=== PATIENT | female | born 1935 | race Caucasian/White ===

== ENCOUNTER 2017-07-01 09:47 | Outpatient (CLI) | payer MEDICARE, OTHER ==
--- NOTE | 2017-07-01 10:41 | MRI ---
MRI LUMBAR SPINE WITHOUT CONTRAST: History: Lumbosacral radiculopathy, left sided. Pain radiates down the left leg, x 3 weeks. Comparison: None. Technique: Lumbar spine MRI was performed without intravenous gadolinium administration. Multisequent ial, multiplanar imaging was performed. FINDINGS: Appropriate T1 marrow signal intensity of the lumbar vertebrae. Vertebral body height is maintained. No fracture. No significant STIR hyperintensity to suggest vertebral body edema or ligamentous injury . Symmetric signal intensity of the psoas muscles. Appropriate signal intensity of the visualized vika id organs. Conus medullaris terminates at the mid L1 level. T12-L1: No significant central canal stenosis or foraminal narrowing. L1-2: Mild loss of disc space height. No significant posterior disc abnormality. No significant centr al canal stenosis. Mild right foraminal narrowing. Mild left foraminal narrowing. L2-3: Desiccation with mild loss of disc space height. Generalized disc bulge, ligamentum flavum thic kening results in mild central canal stenosis. Mild bilateral foraminal narrowing. L3-4: Desiccation with mild loss of disc space height. Generalized disc bulge, ligamentum flavum thic kening results in mild central canal stenosis. There is narrowing of both subarticular zones with par tial obscuration of bilateral traversing L4 nerve roots. Mild right and moderate left foraminal narro wing. L4-5: Mild loss of disc space height. Generalized disc bulge, ligamentum flavum thickening results in mild central canal stenosis. Mild narrowing of both subarticular zones with partial obscuring of praneeth ateral traversing L5 nerve roots. Mild right foraminal narrowing. Severe left foraminal narrowing due to disc material and to a lesser extent posterior element hypertrophy. L5-S1: Desiccation with mild loss of disc space height. Generalized disc bulge results in mild centra l canal stenosis. Narrowing of both subarticular zones with partial obscuration of bilateral traversi ng S1 nerve roots. Mild to moderate right and mild left foraminal narrowing. IMPRESSION: 1. Degenerative changes of the lumbar spine as above. 2. There are varying degrees of central canal stenosis as detailed above. There is mass effect with p artial obscuration of bilateral traversing L4 nerve roots, bilaterally L5 nerve roots and bilateral S 1 nerve roots. Partial obscuration is due to narrowing of the respective subarticular zones. 3. Severe left foraminal narrowing at L4-5 predominately due to disc material. POS: OFF
== END 2017-07-01 09:48 | disposition home or self-care (01) ==
LOC: TBSIIMAG 09:47
PROVIDERS: ATTEND Family Medicine
DX: M47.26 Other spondylosis with radiculopathy, lumbar region (principal); M51.17 Intervertebral disc disorders with radiculopathy, lumbosacral region; M48.061 Spinal stenosis, lumbar region without neurogenic claudication; M48.07 Spinal stenosis, lumbosacral region; M99.83 Other biomechanical lesions of lumbar region
CPT/HCPCS: 72148

== ENCOUNTER 2017-09-07 09:29 | Outpatient (CLI) | payer MEDICARE, OTHER ==
[2017-09-07 11:09] LABS: Hemoglobin 13.1 g/dL (12.0-16.0); Mean Corpuscular HGB CONC 34.4 g/dL (32.0-36.0); Mean Corpuscular Hemoglobin 30.9 pg (27.0-31.0); Mean Corpuscular Volume 89.6 fL (78.0-98.0); Mean Platelet Volume 7.7 fL (7.4-10.4); Platelet Count 225 thou/uL (130-400); RBC Distribution Width 12.4 % (11.5-14.5); Red Blood Cell (RBC) Count 4.24 mill/uL (4.20-5.40); White Blood Cell (WBC) Count 8.8 thou/uL (4.8-10.8)
[2017-09-07 11:18] LABS: PTT 34.8 SEC (22.9-36.1); Prothrombin Time 13.6 SEC (12.0-14.7)
[2017-09-07 11:37] LABS: ALT (SGPT) 18 U/L (8-55); AST (SGOT) 22 U/L (5-34); Albumin 4.4 g/dL (3.4-4.8); Alkaline Phosphatase 79 U/L (40-150); Anion Gap 13 mmol/L (10-20); BUN (Urea Nitrogen) 22 mg/dL (9.8-20.1); Bilirubin, Total 0.8 mg/dL (0.2-1.2); Calc. Creatinine Clearance 0 mL/min (70-130); Calcium 9.4 mg/dL (7.8-10.44); Carbon Dioxide 26 mmol/L (23-31); Chloride 101 mmol/L (98-107); Estimated GFR-MDRD 54; Globulin 2.7 g/dL (2.4-3.5); Glucose 114 mg/dL (83-110); Potassium 4.6 mmol/L (3.5-5.1); Protein, Total 7.1 g/dL (6.0-8.3); Sodium 135 mmol/L (136-145)
== END 2017-09-07 09:30 | disposition home or self-care (01) ==
LOC: LABBT 09:29
PROVIDERS: ATTEND Internal Medicine Cardiovascular Disease
DX: Z01.818 Encounter for other preprocedural examination (principal); R07.9 Chest pain, unspecified
CPT/HCPCS: 80053; 85027; 85610; 85730; 93005; 93010

== ENCOUNTER 2017-09-12 05:50 | Day surgery (SDC) | payer MEDICARE, OTHER ==
[2017-09-07 10:05] VITALS: BMI 31.6
[2017-09-12] MEDS ORDERED: Sodium Chloride 0.9% 1,000 ML IV SCH (06:00)
[2017-09-12] MEDS ORDERED: Lidocaine 1% (PF) 30 ML VIAL ONE (06:33)
[2017-09-12] MEDS ORDERED: Nitroglycerin 100MG/250ML BOT 250 ML ONE ×2 (06:41→08:53)
[2017-09-12] MEDS ORDERED: Heparin 10,000 UNITS/1 ML VIAL ONE (06:41)
[2017-09-12] MEDS ORDERED: Verapamil 5 MG/2 ML VIAL ONE (06:41)
[2017-09-12] MEDS ORDERED: Diazepam 5 MG TAB ONE (06:48)
[2017-09-12] MEDS ORDERED: Diazepam 5 MG TAB PO SCH (07:00)
[2017-09-12 07:26] LABS: Cardiac Risk 2.1 (Less than 4.5)
[2017-09-12] MEDS ORDERED: Iopamidol 370 76% 100 ML VIAL ONE (13:32)
== END 2017-09-12 11:47 | disposition home or self-care (01) ==
LOC: CCL 05:50
PROVIDERS: ATTEND Internal Medicine Cardiovascular Disease
PROC: 4A023N7 Measurement of Cardiac Sampling and Pressure, Left Heart, Percutaneous Approach (ICD-10-PCS; principal; 2017-09-12)
PROC: B2111ZZ Fluoroscopy of Multiple Coronary Arteries using Low Osmolar Contrast (ICD-10-PCS; 2017-09-12)
DX: I25.10 Atherosclerotic heart disease of native coronary artery without angina pectoris (principal); I10 Essential (primary) hypertension; E78.5 Hyperlipidemia, unspecified; E11.9 Type 2 diabetes mellitus without complications; E78.00 Pure hypercholesterolemia, unspecified; Z79.84 Long term (current) use of oral hypoglycemic drugs; Z79.82 Long term (current) use of aspirin; Z79.899 Other long term (current) drug therapy
CPT/HCPCS: 80061; 93458; C1769 ×2; 36415; J1644; J2001

== ENCOUNTER 2018-05-10 18:33 | Inpatient (IN) | payer MEDICARE, OTHER ==
[~2018-05-10 18:33] MED LIST: ISOVUE-370 76%-LOCM 1 ML ONE
[2018-05-10 19:54] LABS: #Basophils 0.1 thou/uL (0.0-0.2); #Eosinphils 0.2 thou/uL (0.0-0.7); #Lymphocytes 1.6 thou/uL (1.20-3.40); #Neutrophils 7.1 thou/uL (1.40-6.50); %Basophils 0.7 % (0.0-1.0); %Eosinophils 2.1 % (0.0-10.0); %Lymphocytes 16.3 % (21.0-51.0); %Monocytes 10.1 % (0.0-10.0); %Neutrophils 70.9 % (42.0-75.0); Mean Corpuscular HGB CONC 33.2 g/dL (32.0-36.0); Mean Corpuscular Hemoglobin 30.1 pg (27.0-31.0); Mean Corpuscular Volume 90.5 fL (78.0-98.0); Mean Platelet Volume 7.6 fL (7.4-10.4); Platelet Count 369 thou/uL (130-400); RBC Distribution Width 12.5 % (11.5-14.5); Red Blood Cell (RBC) Count 3.98 mill/uL (4.20-5.40)
--- NOTE | 2018-05-10 20:03 | RAD ---
CHEST ONE VIEW 05/10/18 INDICATION: High blood pressure and dyspnea. COMPARISON: Prior exam dated 02/27/03. FINDINGS: There is cardiomegaly and mild pulmonary vascular congestion. Small bilateral pleural effusions. No a cute osseous abnormality is evident. IMPRESSION: Findings suspicious for mild CHF. POS: [facility]
[2018-05-10 20:16] LABS: ALT (SGPT) 59 U/L (8-55); AST (SGOT) 51 U/L (5-34); Albumin 3.6 g/dL (3.4-4.8); Alkaline Phosphatase 74 U/L (40-150); Anion Gap 16 mmol/L (10-20); BUN (Urea Nitrogen) 24 mg/dL (9.8-20.1); Bilirubin, Total 0.7 mg/dL (0.2-1.2); Calc. Creatinine Clearance 0 mL/min (70-130); Carbon Dioxide 25 mmol/L (23-31); Chloride 90 mmol/L (98-107); Estimated GFR-MDRD 49; Glucose 109 mg/dL (83-110); Potassium 4.2 mmol/L (3.5-5.1); Protein, Total 7.6 g/dL (6.0-8.3); Sodium 127 mmol/L (136-145)
--- NOTE | 2018-05-10 22:32 | CT ---
CTA OF THE THORAX UTILIZING IV CONTRAST AND PE PROTOCOL AND 3D REFORMATTED IMAGING 05/10/18 INDICATION: History of decreased urine output, redness in the lower extremities and hypertension. FINDINGS: No central or segmental pulmonary embolus is evident. There are coronary artery and thoracic aorta ca lcifications. There are small bilateral pleural effusions. there is mild perihilar edema There is a s mall hiatal hernia. The gallbladder is surgically absence. The visualized adrenal glands are unremark able. There are a few scattered diverticula involving the visualized colon. No focal hepatic lesion i s evident. There are scattered degenerative and osteoarthritic change. No definite acute osseous abnormality is evident. IMPRESSION: 1. No definite central or segmental pulmonary embolus demonstrated. 2. Findings suggesting mild CHF. 3. Small hiatal hernia. 4. Cholecystectomy. 5. Colonic diverticulosis. POS: [facility]
[2018-05-10] MEDS ORDERED: Nitroglycerin 2% Ointment 1 INCH/1 GM Packet ONE (23:00)
[2018-05-10] MEDS ORDERED: Furosemide 40 MG/4 ML VIAL ONE (23:00)
[2018-05-10] MEDS ORDERED: Aspirin Chewable 81 MG TAB ONE (23:04)
[2018-05-10] MEDS ORDERED: Nitroglycerin 0.4 MG TAB 1 EACH ONE (23:35)
[2018-05-10 23:53] LABS: CKMB 7.1 ng/mL (0-6.6)
[2018-05-11] MEDS ORDERED: Insulin Regular 300 UNITS/3 ML VIAL SC PRN (02:17)
[2018-05-11] MEDS ORDERED: Dextrose 5% in Water 1,000 ML IV PRN (02:17)
[2018-05-11] MEDS ORDERED: HYDROcodone/Acetaminophen 5/325 mg Tablet PO PRN (02:17)
[2018-05-11] MEDS ORDERED: Dextrose 50% Abboject 50 ML SYRINGE SLOW IVP PRN (02:17)
[2018-05-11] MEDS ORDERED: hydrALAZINE 20 MG/ML VIAL SLOW IVP PRN (02:32)
[2018-05-11 02:40] LABS: #Basophils 0.1 thou/uL (0.0-0.2); #Eosinphils 0.2 thou/uL (0.0-0.7); #Lymphocytes 1.1 thou/uL (1.20-3.40); #Monocytes 0.7 thou/uL (0.11-0.59); #Neutrophils 7.2 thou/uL (1.40-6.50); %Basophils 0.6 % (0.0-1.0); %Eosinophils 1.6 % (0.0-10.0); %Lymphocytes 11.9 % (21.0-51.0); %Monocytes 7.6 % (0.0-10.0); %Neutrophils 78.3 % (42.0-75.0); Hemoglobin 11.9 g/dL (12.0-16.0); Mean Corpuscular HGB CONC 33.1 g/dL (32.0-36.0); Mean Corpuscular Hemoglobin 29.5 pg (27.0-31.0); Mean Corpuscular Volume 89.2 fL (78.0-98.0); Mean Platelet Volume 7.2 fL (7.4-10.4); Platelet Count 355 thou/uL (130-400); RBC Distribution Width 12.5 % (11.5-14.5); Red Blood Cell (RBC) Count 4.03 mill/uL (4.20-5.40); White Blood Cell (WBC) Count 9.2 thou/uL (4.8-10.8)
[2018-05-11 03:11] LABS: Anion Gap 13 mmol/L (10-20); BUN (Urea Nitrogen) 22 mg/dL (9.8-20.1); Calc. Creatinine Clearance 0 mL/min (70-130); Calcium 8.6 mg/dL (7.8-10.44); Carbon Dioxide 26 mmol/L (23-31); Chloride 90 mmol/L (98-107); Estimated GFR-MDRD 48; Glucose 141 mg/dL (83-110); Magnesium 1.7 mg/dL (1.6-2.6); Potassium 4.4 mmol/L (3.5-5.1); Sodium 125 mmol/L (136-145)
--- NOTE | 2018-05-11 03:34 | HP ---
PRIMARY CARE PHYSICIAN: Dr. Simona Estrada. CHIEF COMPLAINT: Shortness of breath and lower extremity swelling. HISTORY OF PRESENT ILLNESS: The patient is an 82-year-old female with past medical history of hypertension and coronary artery disease, who presents to the emergency department for worsening shortness of breath and lower extremity edema. The patient's grain i farmworker is Dr. Alfred, who follows up the patient. The patient was seen by him for concern for possible CHF. The patient was started on Lasix 40 mg daily. The patient reported that when she took the medication in the morning , she did respond to it with urination. She felt that the response to Lasix was not enough and that is why she came to the ER. The patient had history of left main coronary artery with 50% blockage. Denies any history of cardiac surgery or cardiac stent. The patient also reports history of valve problems. The patient has venous circulation problem and she has several venous surgery in her lower extremities due to swelling. The patient was seen in the ER. She was given nitroglycerin paste and she was given one dose of Lasix 40 mg IV, which she has had improvement in her symptoms. CTA of the chest was significant for small bilateral pleural effusion. Pt reports rashes on BLE that started before pt being on lasix and metoprolol and has worsen. Pt reports rashes, weakness and fatigue with metoprolol PAST MEDICAL HISTORY: Hypertension, coronary artery disease, and prediabetes. PAST SURGICAL HISTORY: Significant for bilateral vein surgery, left knee surgery, cholecystectomy, and hysterectomy. SOCIAL HISTORY: The patient denies any alcohol or smoking. FAMILY HISTORY: The patient is unsure about her family history. MEDICATIONS: The patient's home medications include; 1. Lasix 40 mg daily. 2. Aspirin 81 mg. 3. Atorvastatin 10 mg. 4. Benicar 20 mg/12.5 mg. 5. Tradjenta 5 mg daily. ALLERGIES: NO KNOWN ALLERGIES. THE PATIENT WAS STARTED ON METOPROLOL THIS WEEK BY HER SPORTS TRAINER, AND THE PATIENT REPORTED WORSENING OF HER RASHES AND ALSO SHORTNESS OF BREATH WITH THAT. REVIEW OF SYSTEMS: GENERAL AND CONSTITUTIONAL: Fatigue. HEAD: No complaints. EYES: No changes to her vision. THROAT: No sore throat. NECK: No swelling or lymphadenopathy of her neck. HEART: No chest pain. LUNGS: Reports shortness of breath. ABDOMEN: Soft, nontender. EXTREMITIES: Bilateral lower extremity edema and swelling. NEURO: Denies any changes to her sensation and strength. SKIN: Reported rashes. PHYSICAL EXAMINATION: VITAL SIGNS: Blood pressure 173/72, pulse 74, respiratory rate 22, and O2 saturation 96% on room air. GENERAL: The patient is alert. HEAD: Appears to be atraumatic. EYES: Extraocular movement intact. THROAT: No exudate noted. NECK: No lymphadenopathy or JVD noted. Hepatic jugular reflex, negative. HEART: Regular rate and rhythm. No murmur, rubs, or gallops noted. LUNGS: Clear bilaterally. No wheezes, rales, or crackles noted. ABDOMEN: Soft. Bowel sounds positive. Nontender. EXTREMITIES: Lower extremity, trace edema noted on bilateral lower extremity. NEURO: The patient is alert. SKIN: The patient seems to have erythematous rashes noted on her bilateral lower extremity. They were nontender. LABORATORY DATA: Labs reviewed. CBC; white blood cell count 10, hemoglobin 12, hematocrit 36.1, and platelets 369. D-dimer 2.43. CMP; sodium 127, potassium 4.2, chloride 90, bicarb 25, BUN 24, creatinine 1.08. AST 51, ALT 59, CK-MB 7.1, troponin 0.029, and BNP is 1132.9. IMAGING STUDIES: EKG appeared to be sinus rhythm. No ST-segment elevation noted. CT angiogram of the chest were reviewed and negative for PE, findings suggestive of mild CHF and small hiatal hernia, cholecystectomy, and colonic diverticulosis. ASSESSMENT/PLAN: Acute congestive heart failure. The patient has elevated BNP, suggestive of CHF. Unclear type and cause of CHF at this point. The patient was given Lasix 80 mg IV in the ER. The patient takes 40 mg of Lasix at home. Given that, the patient had only small bilateral pleural effusion and trace edema. We will continue with home Lasix 40 mg. We will order echocardiogram. The patient has been on Lasix 40 mg p.o. at home for the past two days only. The patient is already on Benicar. The patient was started on metoprolol, but reports shortness of breath and possible rashes. Unclear if this is a true allergy or this is symptoms of starting the metoprolol while the patient having acute CHF. We will hold restarting beta laura at this point. Follow troponin, tele. Cardiology consult placed for new diagnosis of CHF. Fluid restriction 1.5 L per day. Strict I's and O's. Hyponatremia, moderated, but asymptomatic, sodium 127, likely due to Lasix. The patient not in COLIN at this point. Continue to monitor creatinine and sodium at this point. Hypertension. We will continue Benicar. The patient's blood pressure is uncontrolled on admission. We will add hydralazine p.r.n. at this point. The patient may benefit from another agent or increasing dose of Benicar. Bilateral lower extremity rash, unclear etiology, likely due to medications side effect. We will add Benadryl p.r.n. at this point and continue to monitor rashes. History of coronary artery disease. Per the patient, the patient has a 50% blockage of the LAD. I am going to continue home statin and aspirin at this point. The patient is full code. DVT prophylaxis. Address medical power of securities attorney. The patient reports that she is not able to make decision, that her children can make decision for her. Job ID: [id number] MTDD
[2018-05-11] MEDS ORDERED: HYDROcodone/Acetaminophen 5/325 mg Tablet ONE ×2 (03:45→07:57)
[2018-05-11 05:40] LABS: CKMB 5.2 ng/mL (0-6.6)
[2018-05-11] MEDS ORDERED: Furosemide 40 MG TAB ONE (07:38)
[2018-05-11] MEDS ORDERED: hydrALAZINE 20 MG/ML VIAL ONE (07:58)
[2018-05-11] MEDS ORDERED: Amlodipine 5 MG TAB PO SCH (08:15)
--- NOTE | 2018-05-11 08:39 | PRG ---
DATE OF SERVICE: 05/11/2018 SUBJECTIVE: The patient is seen and examined at the bedside. She feels better. Her shortness of breath improved. She had some discomfort in the left flank. This is something what she has on and off for some time. No nausea. No vomiting. OBJECTIVE: VITAL SIGNS: Blood pressure is elevated at 192/86. She is afebrile. HEENT: Head is atraumatic and normocephalic. Eyes, PERRLA. Conjunctivae reddish and skin around her eyes is dry and oral mucosa is moist. NECK: Supple. LUNGS: Breath sounds slightly diminished at both bases with sporadic crackles bilaterally at both bases. HEART: S1, S2 normal. There is a systolic murmur in the right sternal border 2/6. ABDOMEN: Soft, nontender. Bowel sounds are present. No organomegaly. EXTREMITIES: No clubbing or cyanosis. There is 1+ peripheral edema. There is some petechiae over her feet and above the ankles. NEUROLOGICAL: She is alert and oriented x4. There is no any motor or sensory deficit. Cranial nerves are intact. LABORATORY DATA: Labs showed white count of 9.2, hemoglobin 11.9, hematocrit 35.9, and platelet count is 355. Sodium 125, potassium 4.4, chloride 90, BUN 22, glucose 132, magnesium 1.7, calcium 8.6. CK-MB 5.2, troponin I 0.035. BNP 1352.2. TSH 1.04. IMPRESSION: 1. Acute congestive heart failure with elevated BNP and positive findings on her chest x-ray at the time of admission. She received Lasix IV, then she is switched to p.o. and her dyspnea is significantly improved. Echocardiogram is still pending. Cardiology consultation is still pending. 2. Uncontrolled hypertension. The patient is on a Benicar 20 mg once a day. We will introduce amlodipine 5 mg once a day. She had some bad reaction to Toprol, so we are going to leave this up to Cardiology whether she needs to be on any beta laura at this point. 3. Coronary artery disease with apparently cardiac cath done in December 2017 with LAD 50% blockage. 4. Dry eyes and suspicion for a sicca syndrome. We will obtain some basic lab work to rule out this immunological disease. 5. Bilateral lower extremity edema, most likely related to her congestive heart failure. 6. Hyponatremia, worsened after Lasix use. We will obtain some osmolalities and the urine lytes. PLAN: As mentioned above. We will obtain echocardiogram. Get cardiology consultation. Continue her current regimen. Obtain serum and urine osmolality with electrolytes in her urine. Obtain KAREEM and DVT prophylaxis. Job ID: [id number]
[2018-05-11] MEDS ORDERED: Non-Formulary Item 1 EACH (Olmesartan/Hydrochlorothiazide [Olmesartan-Hctz 20-12.5 Mg Tab PO SCH (09:00)
[2018-05-11] MEDS ORDERED: Enoxaparin Sodium 30 MG/0.3 ML SYRINGE ONE (09:59)
[2018-05-11] MEDS: Amlodipine 5 MG TAB PO SCH (15:08)
[2018-05-11] MEDS: Furosemide 40 MG TAB PO SCH (15:08)
[2018-05-11] MEDS: Atorvastatin Calcium 10 MG TAB PO SCH (15:09)
[2018-05-11] MEDS: Aspirin 81 mg Enteric Coated Tablet PO SCH ×2 (15:09→21:53)
[2018-05-11] MEDS: Enoxaparin Sodium 30 MG/0.3 ML SYRINGE SC SCH (15:09)
[2018-05-11] MEDS: Hydrochlorothiazide 25 MG TAB PO SCH (15:10)
[2018-05-11 17:17] LABS: Potassium, Urine 21.3 mmol/L
--- NOTE | 2018-05-11 17:31 | CON ---
DATE OF CONSULTATION: REASON FOR CONSULTATION: Congestive heart failure. HISTORY OF PRESENT ILLNESS: Ms. Lake is an 82-year-old woman, who has multiple complaints today. She has complained of lower extremity edema, shortness of breath in addition to diarrhea. She attributes all of these to current change in her medical therapy. She was placed on a beta laura recently. States she read on the side effects and attribute all of her side effects to the above. She states she has not had any sleep over the last four days. Upon my visit, she has no lower extremity edema or crackles noted bilaterally. She has been admitted for a BNP of 1352 suggesting congestive heart failure. Her last echo in the office was dated December 2017. LVEF at that time of 55% to 60%. She did have mild LVH. She had moderate aortic insufficiency and mild aortic stenosis. CURRENT MEDICATIONS: Include; 1. Atorvastatin. 2. Olmesartan. 3. Aspirin. 4. Tradjenta. 5. Toprol. PAST MEDICAL HISTORY: Hypertension, bradycardia, CAD, diabetes mellitus, varicose veins, appendectomy, cholecystectomy, hernia repair, hysterectomy. SOCIAL HISTORY: Previous tobacco use. Allergies, none. REVIEW OF SYSTEMS: Ten-point review of systems is reviewed and as above, otherwise negative. PHYSICAL EXAMINATION: GENERAL: The patient is a pleasant 82-year-old, who is in no acute distress. The patient appears their stated age. VITAL SIGNS: Blood pressure pulse 81, temperature 98. NEUROLOGIC: The patient is alert and oriented x3 with no focal neurologic deficits. HEENT: Sclerae without icterus. Mouth has moist mucous membranes with normal pallor. NECK: No JVD. Carotid upstroke brisk. No bruits bilaterally. LUNGS: Clear to auscultation with unlabored respirations. BACK: No scoliosis or kyphosis. CARDIAC: Regular rate and rhythm with normal S1 and S2. No S3 or S4 noted. No significant rubs, murmurs, thrills, or gallops noted throughout the precordium. PMI is not displaced. There is no parasternal heave. ABDOMEN: Soft, nontender, nondistended. No peritoneal signs present. No hepatosplenomegaly. No abnormal striae. EXTREMITIES: 2+ femoral and 2+ dorsalis pedis pulses. No cyanosis, clubbing, or edema. SKIN: No gross abnormalities. PERTINENT LABORATORY DATA: Hemoglobin 11.1, creatinine 1.0. CK-MB is 7.1 with troponin of 0.029. IMPRESSION: 1. Acute on chronic diastolic heart failure. 2. Mild aortic stenosis. 3. Moderate aortic insufficiency. RECOMMENDATIONS: Currently echo is pending. She has been diuresed and feels better. She has no finding of lower extremity edema or crackles noted bilaterally. Would likely recommend overnight observation. She has had diarrhea. May need to seek the source of her diarrhea. Otherwise from my standpoint, I have no further recommendations. Plan is to follow up Ms. Lake as an outpatient. I will be out of the office for the next four days. Please re-consult if needed. Job ID: [id number]
[2018-05-11] MEDS: diphenhydrAMINE 25 MG CAP PO PRN (21:53)
[2018-05-11] MEDS: Acetaminophen 325 MG TAB PO PRN (21:54)
[2018-05-12] MEDS: Furosemide 40 MG TAB PO SCH (08:33)
[2018-05-12] MEDS: Amlodipine 5 MG TAB PO SCH (08:33)
[2018-05-12] MEDS: Aspirin 81 mg Enteric Coated Tablet PO SCH ×2 (08:33→21:32)
[2018-05-12] MEDS: Atorvastatin Calcium 10 MG TAB PO SCH (08:33)
[2018-05-12] MEDS: Enoxaparin Sodium 30 MG/0.3 ML SYRINGE SC SCH (08:34)
[2018-05-12] MEDS: Hydrochlorothiazide 25 MG TAB PO SCH (08:34)
[2018-05-12] MEDS: Acetaminophen 325 MG TAB PO PRN ×2 (09:44→16:42)
[2018-05-12] MEDS ORDERED: Naproxen 500 MG TAB PO SCH ×2 (10:30→21:00)
[2018-05-12] MEDS: Naproxen 500 MG TAB PO SCH ×2 (10:42→11:33)
--- NOTE | 2018-05-12 12:41 | PRG ---
DATE OF SERVICE: 05/12/2018 SUBJECTIVE: The patient is seen and examined at the bedside. The daughter is present in the room during my visit. She has multiple questions. I tried to answer to her satisfaction. The patient still has some discomfort in the left flank area when she moves and turns. She is able to tolerate her food without any nausea. OBJECTIVE: VITAL SIGNS: Blood pressure is 151/64, temperature is 98.1, respirations 18, pulse is 76, and O2 saturation is 95% on room air. HEENT: Her head is atraumatic and normocephalic. Eyes are PERRLA. Sclerae are nonicteric. Oral mucosa is moist. NECK: Supple. LUNGS: Bilateral breath sounds diminished at both bases with few crackles bilaterally at the bases. HEART: S1 and S2, normal. No S3. No S4. ABDOMEN: Soft and nontender. Bowel sounds are present. No organomegaly. EXTREMITIES: No clubbing, cyanosis . NEUROLOGIC: She is alert and oriented x4. There is no any sensory or motor deficits present. Cranial nerves are intact. LABORATORY DATA: Labs showed glycemia is ranging from 124 to 169. BMP is pending. Urine osmolality is 478, urine sodium 142, urine potassium 21.3. Troponin 0.010. CRP is 3.75. Sedimentation rate is 68. IMPRESSION: 1. Acute congestive heart failure with most likely diastolic dysfunction. Echocardiogram is still pending, and the patient is on Lasix. Cardiology consultation was done with Dr. Alfred, who recommends to continue current regimen. 2. Uncontrolled hypertension. The patient was on Benicar 20 mg and she was started on amlodipine 5 mg. Her blood pressure is still somewhat elevated. We are going to double the dose of Benicar to 20 mg twice a day. 3. Coronary artery disease with apparently cardiac cath done in December 2017 with LAD 50% blockage. 4. 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 We will get Nephrology consultation. We will continue 1000 mL of fluid restriction. 5. Elevated inflammatory markers. KAREEM is still pending. She will need to have followup with malware analyst most likely if KAREEM is positive. 6. Bilateral lower extremity edema, most likely related to congestive heart failure. Continue deep venous thrombosis prophylaxis. Job ID: [id number]
[2018-05-12 12:56] LABS: Anion Gap 12 mmol/L (10-20); BUN (Urea Nitrogen) 22 mg/dL (9.8-20.1); Calc. Creatinine Clearance 62 mL/min (70-130); Calcium 8.6 mg/dL (7.8-10.44); Carbon Dioxide 26 mmol/L (23-31); Chloride 87 mmol/L (98-107); Estimated GFR-MDRD 57; Glucose 106 mg/dL (83-110); Potassium 4.4 mmol/L (3.5-5.1); Sodium 121 mmol/L (136-145)
--- NOTE | 2018-05-12 16:03 | CON ---
DATE OF CONSULTATION: HISTORY OF PRESENT ILLNESS: Ms. Lake is an 82-year-old white female, who was admitted for shortness of breath with lower extremity swelling. She was found to be in for possible CHF. Her serum sodium was noted to be going down, hence, the Renal consultation. Of interest, this patient has been on hydrochlorothiazide and currently on Naprosyn. These two medications may play a factor in the hyponatremia. Please note that the patient also has a clinical diagnoses of CHF. Initial serum sodium was 127, but this morning, it was 121. REVIEW OF SYSTEM: Mild shortness of breath. Occasional leg edema. No nausea. No vomiting. No diarrhea. No constipation. No headache. No diplopia. No confusion. No hematochezia. No melena. No hematemesis. No syncopal episode. No productive cough. No fever or chills. Appetite and energy level are fair. No diplopia. No dysuria. No urinary frequency. MEDICATIONS: 1. Ecotrin 81 mg p.o. b.i.d. 2. Lipitor 10 mg at bedtime. 3. Benadryl 25 mg q.6 p.r.n. 4. Lovenox 30 mg subcu daily. 5. Furosemide 40 mg p.o. daily. 6. Hydrochlorothiazide on hold. 7. Imdur ER 30 mg once a day. 8. Olmesartan 20 mg p.o. b.i.d. 9. The patient is also on Naprosyn 500 mg p.o. b.i.d. PAST MEDICAL HISTORY: The patient has history of coronary artery disease, hypertension, and hyperlipidemia. PAST SURGICAL HISTORY: Status post bilateral vein surgery, status post left knee surgery, status post laparoscopic cholecystectomy, status post hysterectomy, status post appendectomy, status post cataract surgery, and status post cardiac cath. SOCIAL HISTORY: The patient is , lives alone, lives around the [place]. She is a retired government program manager. No history of smoking. Alcohol 2 to 3 beers three times a week. Education, high school. No history of smoking. She is . No blood transfusion. ALLERGIES: NO KNOWN DRUG ALLERGIES. TRAUMA: None. IMMUNIZATION: Up-to-date. HOSPITALIZATIONS: Please see past medical history. FAMILY HISTORY: No family history of ESRD. PHYSICAL EXAMINATION: VITAL SIGNS: Blood pressure is 151/64, heart rate 76, respiratory rate 18, temperature 98.1, and pulse ox 95%. GENERAL: Noted to be awake, alert, sitting comfortable, not in distress. SKIN: Adequate turgor. HEENT: Pinkish conjunctiva. Anicteric sclerae. No neck mass. No carotid bruits. No JVD. CHEST: No deformities. LUNGS: Decreased breath sounds. HEART: Normal sinus rhythm. No murmur. No gallops. No rubs. ABDOMEN: Globular, soft, nontender. No masses. EXTREMITIES: Trace edema. No deformities. NEUROLOGICAL: Awake and oriented to 3 spheres. Moving all extremities. No tremors. No asterixis. No ataxia. LABORATORY DATA: Laboratories of May 12, 2018; sodium 121, potassium 4.4, chloride 87, carbon dioxide 26, BUN is 22, creatinine 0.94, glucose 106, and calcium 8.6. May 11, 2018; serum sodium was 125. May 10, 2018; serum sodium was 120 in addition BNP 1132. May 10, 2018; chest x-ray showed mild CHF. ASSESSMENT AND PLAN: Hyponatremia-in a background history of congestive heart failure, consider dilutional hyponatremia with this patient. The plan is to increase her Lasix to 40 mg IV q.12 to help with dilutional hyponatremia. There is no indication for any hypertonic saline at the present time. In addition, we will hold off any tolvaptan or conivaptan for the moment. Continue free water restriction. We will limit free water intake to about 1 L per day. I did discuss this at length with the patient. Agree to hold off hydrochlorothiazide and Naprosyn since they may be playing a factor in the hyponatremia. The diagnosis and prognosis were explained to the patient and her daughter. Job ID: [id number]
[2018-05-12] MEDS: Naproxen 500 MG TAB PO PRN (21:32)
--- NOTE | 2018-05-12 23:31 | PDOC.CTH ---
Cardiology Progress Note - Subjective Feeling better today. No overnight events. Na down to 121 today. - Objective Vital Signs Temp Pulse Resp BP BP Pulse Ox 05/12/18 20:00 97.7 F 82 17 129/61 97 05/12/18 16:05 97.9 F 71 18 140/62 96 05/12/18 11:37 98.1 F 76 18 151/64 H 95 Weight 186 lb 3.2 oz 05/11/18 05/12/18 05/13/18 06:59 06:59 06:59 Intake Total 650 500 Output Total 700 800 Balance -50 -300 - Physical Examination General/Neuro: alert & oriented x3 Neck: no JVD present Lungs: CTA Heart: RRR Abdomen: NT/ND Extremities: other: (no edema) - Telemetry Telemetry Rhythm: SR - Labs Result Diagrams: 05/11/18 02:32 05/12/18 12:00 Troponin/CKMB CK-MB (CK-2) 5.2 ng/mL (0-6.6) 05/11/18 04:49 Troponin I 0.010 ng/mL (< 0.028) 05/12/18 04:50 - Assessment/Plan 1. Acute diastolic CHF 2. Hyponatremia 3. HTN 4. History of CAD Renal consulted for assistance with hyponatremia. Diuretics held. Will add Imdur for HTN and history of CAD as she's been on this in the past and tolerated well. ECHO reviewed. EF 55%. Continue PT>
[2018-05-13] MEDS: diphenhydrAMINE 25 MG CAP PO PRN (02:01)
[2018-05-13 06:04] LABS: Thyroid Stimulating Hormone 1.008 uIU/mL (0.35-4.94)
[2018-05-13 08:26] LABS: #Eosinphils 0.1 thou/uL (0.0-0.7); #Lymphocytes 1.5 thou/uL (1.20-3.40); #Monocytes 0.8 thou/uL (0.11-0.59); #Neutrophils 9.1 thou/uL (1.40-6.50); %Basophils 0.4 % (0.0-1.0); %Eosinophils 0.8 % (0.0-10.0); %Lymphocytes 12.8 % (21.0-51.0); %Monocytes 6.6 % (0.0-10.0); %Neutrophils 79.4 % (42.0-75.0); Mean Corpuscular HGB CONC 32.9 g/dL (32.0-36.0); Mean Corpuscular Hemoglobin 29.4 pg (27.0-31.0); Mean Corpuscular Volume 89.4 fL (78.0-98.0); Mean Platelet Volume 6.5 fL (7.4-10.4); Platelet Count 435 thou/uL (130-400); RBC Distribution Width 12.8 % (11.5-14.5); Red Blood Cell (RBC) Count 4.42 mill/uL (4.20-5.40); White Blood Cell (WBC) Count 11.5 thou/uL (4.8-10.8)
[2018-05-13] MEDS: Aspirin 81 mg Enteric Coated Tablet PO SCH ×2 (08:30→20:29)
[2018-05-13] MEDS: Atorvastatin Calcium 10 MG TAB PO SCH (08:30)
[2018-05-13] MEDS: Enoxaparin Sodium 30 MG/0.3 ML SYRINGE SC SCH (08:31)
[2018-05-13 08:47] LABS: ALT (SGPT) 52 U/L (8-55); AST (SGOT) 32 U/L (5-34); Albumin 3.7 g/dL (3.4-4.8); Alkaline Phosphatase 67 U/L (40-150); Anion Gap 13 mmol/L (10-20); BUN (Urea Nitrogen) 26 mg/dL (9.8-20.1); Bilirubin, Total 0.8 mg/dL (0.2-1.2); Calc. Creatinine Clearance 64 mL/min (70-130); Calcium 8.7 mg/dL (7.8-10.44); Carbon Dioxide 23 mmol/L (23-31); Chloride 87 mmol/L (98-107); Estimated GFR-MDRD 60; Globulin 3.7 g/dL (2.4-3.5); Glucose 125 mg/dL (83-110); Potassium 4.3 mmol/L (3.5-5.1); Protein, Total 7.4 g/dL (6.0-8.3)
[2018-05-13 08:53] LABS: Sodium 119 mmol/L (136-145)
[2018-05-13] MEDS ORDERED: Furosemide 40 MG TAB PO SCH (09:00)
--- NOTE | 2018-05-13 11:43 | PRG ---
DATE OF SERVICE: SUBJECTIVE: Ms. Jaya vargas a is an 82-year-old white female, who was seen for hyponatremia. Initially, I felt that this could be secondary to dilutional hyponatremia from her CHF. She has been given Lasix at 40 mg b.i.d. However, serum sodium continues to worsen. She is now on free water restriction. A repeat cardiac echo showed a normal EF. My plan is to start her on tolvaptan. 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 No other complaints today. No chest pain or shortness of breath. She does feel tired. No mental status change. OBJECTIVE: VITAL SIGNS: Blood pressure 161/72, heart rate 76, respiratory rate 16, temperature 98.1, pulse ox 98%. GENERAL: Noted to be awake, alert, comfortable, not in overt distress. SKIN: Adequate turgor. HEENT: She has pinkish conjunctivae. Anicteric sclerae. NECK: No neck mass. No carotid bruits. No JVD. CHEST: No deformities. LUNGS: Clear breath sounds. No wheezing. No crackles. HEART: Normal sinus rhythm. No murmurs, no gallops, or rubs. ABDOMEN: Globular, soft, nontender. No masses. EXTREMITIES: No edema or deformities. MEDICATIONS: Medications of May 13, 2018, reviewed. LABORATORIES: May 13, 2018, sodium 119, potassium 4.3, chloride 87, carbon dioxide 23, BUN 26, creatinine 0.9, glucose 125. Serum osmolality is pending. Uric acid is 5.0. Cortisol 19.4. TSH 1.008. ASSESSMENT AND PLAN: Hyponatremia-most likely the patient may have underlying syndrome of inappropriate antidiuretic hormone improved with diuresis. I will stop the diuretics with this patient in a background of normal ejection fraction. She is not clinically volume overloaded at the present time. Tolvaptan will now be started at 15 mg tablet once a day. Liver function is noted to be within normal. Continue free water restriction. Overall, agree with current management. Job ID: [id number]
[2018-05-13] MEDS ORDERED: Lidocaine Patch Removal 1 EACH TOP PRN (12:13)
--- NOTE | 2018-05-13 12:13 | PDOC.PN ---
- Subjective Encounter Start Date: 05/13/18 (f/u DM) Encounter Start Time: 12:11 Subjective: Pt reports pain in legs and disrupted sleep last night. Denies any problem -: currently, denies SOB/chest pain. Has for a few weeks intermittent -: left lower flank pain. Denies curerntly - Objective Resuscitation Status - Order Detail: 05/11/18 01:55 Resuscitation Status Routine Resuscitation Status: FULL: Full Resuscitation Vital Signs & Weight: Vital Signs (12 hours) Temp Pulse Resp BP BP Pulse Ox 05/13/18 08:22 98.1 F 76 16 161/72 H 98 05/13/18 04:00 98.2 F 80 20 138/63 98 Weight Weight 185 lb 3.2 oz I&O: 05/12/18 05/13/18 05/14/18 06:59 06:59 06:59 Intake Total 650 500 Output Total 700 800 Balance -50 -300 Result Diagrams: 05/13/18 08:20 05/13/18 08:20 Additional Labs: Accuchecks 05/13/18 05/13/18 05/12/18 11:09 05:36 20:17 POC Glucose 129 H 118 H 167 H 05/12/18 16:39 POC Glucose 130 H EKG Reviewed by me: Yes (tele - sinus 70's, brief svtto 150's yesterday) Phys Exam - Physical Examination Constitutional: NAD Respiratory: no wheezing, no rales, no rhonchi, clear to auscultation bilateral Cardiovascular: RRR, no significant murmur Gastrointestinal: soft, non-tender, no distention, positive bowel sounds some edema of feet/toes, none proximally to this Dx/Plan (1) Hyponatremia Code(s): E87.1 - HYPO-OSMOLALITY AND HYPONATREMIA Status: Acute (2) Hypertension Code(s): I10 - ESSENTIAL (PRIMARY) HYPERTENSION Status: Chronic Qualifiers: Hypertension type: essential hypertension Qualified Code(s): I10 - Essential (primary) hypertension (3) Diastolic HF (heart failure) Code(s): I50.30 - UNSPECIFIED DIASTOLIC (CONGESTIVE) HEART FAILURE Status: Acute Qualifiers: Heart failure chronicity: acute Qualified Code(s): I50.31 - Acute diastolic (congestive) heart failure (4) Coronary artery disease Code(s): I25.10 - ATHSCL HEART DISEASE OF [place] CORONARY ARTERY W/O ANG PCTRS Status: Chronic Qualifiers: Coronary Disease-Associated Artery/Lesion type: [place] artery - Plan * Appreciate consultants * Nephro -d/c lasix, start tolvaptin and fluid restrict as c/w SIADH * Cards - pt was diuresed for diastolic HF * leg pain - edema improved - trial of light compression knee-high for feet swelling * intermittent left lower flank pain - lidocaine patch prn if pain resumes * pre-DM - controlled * continue home meds as ordered * Inflammatory markers elevated - KAREEM pending * * dvt prophy - lovenox * gi prophy - not indicated * code status full * * reviewed plan of care with patient, no questions or further needs at end of eval.
--- NOTE | 2018-05-13 13:13 | EKG ---
Test Reason : LOWER EXT SWELLING Blood Pressure : / mmHG Vent. Rate : 074 BPM Atrial Rate : 074 BPM P-R Int : 148 ms QRS Dur : 090 ms QT Int : 394 ms P-R-T Axes : 048 045 020 degrees QTc Int : 437 ms Sinus rhythm with occasional Premature ventricular complexes Nonspecific ST abnormality Abnormal ECG Confirmed by CHIARA FAY DO ([id number]), order editor ARJUN JIANG ([id number] on 05/13/2018 1:12:59 PM Referred By: Confirmed By:CHIARA FAY DO
[2018-05-13] MEDS: Naproxen 500 MG TAB PO PRN (14:31)
--- NOTE | 2018-05-13 19:04 | PDOC.CTH ---
Cardiology Progress Note - Subjective She is doing well. No new issues. - Objective Vital Signs Temp Pulse Resp BP BP Pulse Ox 05/13/18 16:12 97.6 F 75 18 153/65 H 98 05/13/18 12:12 97.6 F 83 16 116/57 L 97 05/13/18 08:22 98.1 F 76 16 161/72 H 98 Weight 185 lb 3.2 oz 05/12/18 05/13/18 05/14/18 06:59 06:59 06:59 Intake Total 650 500 860 Output Total 700 800 950 Balance -50 -300 -90 - Physical Examination General/Neuro: alert & oriented x3, NAD Neck: no JVD present Lungs: CTA, unlabored respirations Heart: RRR Abdomen: NT/ND Extremities: other: (no edema.) - Telemetry Telemetry Rhythm: NSR - Labs Result Diagrams: 05/13/18 08:20 05/13/18 08:20 Troponin/CKMB CK-MB (CK-2) 5.2 ng/mL (0-6.6) 05/11/18 04:49 Troponin I 0.010 ng/mL (< 0.028) 05/12/18 04:50 - Assessment/Plan 1. Acute diastolic CHF, resolved. 2. Hyponatremia 3. HTN 4. History of CAD PLAN: - Concern for SIADH. - Nephrology on board appreciate recs. - Tolvaptan to be started. - CV stable. - Does not need a low sodium diet as LV function normal. Diet per nephrology. Can be regular diet.
[2018-05-13] MEDS: Acetaminophen 325 MG TAB PO PRN (20:29)
[2018-05-13] MEDS: Lidocaine 5% Patch TD PRN (20:31)
[2018-05-14] MEDS: Naproxen 500 MG TAB PO PRN ×2 (04:00→17:09)
[2018-05-14 07:22] LABS: Anion Gap 12 mmol/L (10-20); BUN (Urea Nitrogen) 26 mg/dL (9.8-20.1); Calc. Creatinine Clearance 73 mL/min (70-130); Calcium 8.3 mg/dL (7.8-10.44); Carbon Dioxide 23 mmol/L (23-31); Chloride 87 mmol/L (98-107); Estimated GFR-MDRD 70; Glucose 125 mg/dL (83-110); Potassium 4.5 mmol/L (3.5-5.1)
[2018-05-14 07:31] LABS: Sodium 117 mmol/L (136-145)
[2018-05-14] MEDS: Enoxaparin Sodium 30 MG/0.3 ML SYRINGE SC SCH (08:03)
[2018-05-14] MEDS: Aspirin 81 mg Enteric Coated Tablet PO SCH ×2 (08:03→20:05)
[2018-05-14] MEDS: Atorvastatin Calcium 10 MG TAB PO SCH (08:03)
[2018-05-14] MEDS: Tolvaptan 15 MG TAB PO SCH (08:04)
--- NOTE | 2018-05-14 10:18 | PRG ---
DATE OF SERVICE: 05/14/2018 SUBJECTIVE: Ms. Lake is an 82-year-old white female, who was seen by the Renal Service for her hyponatremia. Serum sodium has been worsening. The first dose of tolvaptan was given today. Possibility of SIADH remains with this patient. She does complain of left-sided chest pain. A CT scan of the chest was done back on May 10, 2018, and findings showed some minimal fluid with this patient. I will be adding gabapentin 100 mg tablet once a day with this patient. No other complaints. No chest pain or shortness of breath. Please note, most recent cardiac echo showed normal EF with this patient. OBJECTIVE: VITAL SIGNS: Blood pressure 162/67, heart rate 69, respiratory rate 16, temperature 97.7, and pulse ox 95%. GENERAL: Noted to be awake, alert, comfortable, not in overt distress. SKIN: Adequate turgor. HEENT: She has pinkish conjunctivae. Anicteric sclerae. No neck mass. No carotid bruits. No JVD. CHEST: No deformities. LUNGS: Clear breath sounds. HEART: Normal sinus rhythm. No murmur. No gallops. No rubs. ABDOMEN: Globular, soft, and nontender. No masses. EXTREMITIES: No edema. No deformities. MEDICATIONS: Medications of May 14, 2018, reviewed. LABORATORY DATA: Laboratories of May 13, 2018; white count 11.5, hemoglobin 13. Sodium 117, potassium 4.5, chloride 87, carbon dioxide 23, BUN 26, creatinine 0.79, glucose 125, calcium 8.3. ASSESSMENT AND PLAN: 1. Hyponatremia-possibility of syndrome of inappropriate antidiuretic hormone secretion. Tolvaptan 15 mg tablet once a day was started today. Continue to monitor. If needed, we can increase the dose of tolvaptan. The other possibility is we can give her hypertonic saline if the serum sodium further worsens. Currently, serum sodium is now 117 from 119 yesterday. Prior to that, it was 125. 2. Continue free water restriction. Please note, I have changed the diet to a regular diet to enhance increased salt intake with this patient. 3. Overall, agree with current management. Job ID: [id number] MTDD
--- NOTE | 2018-05-14 12:39 | PRG ---
DATE OF SERVICE: 05/14/2018 SUBJECTIVE: The patient is seen and examined at the bedside. Her daughter is present in the room during my visit. The patient feels weak and tired. Her appetite is picking up. OBJECTIVE: VITAL SIGNS: Blood pressure is 162/67, pulse is 69, temperature is 97.7, respiratory rate is 16, O2 saturation 95% on room air. HEENT: Her head is atraumatic and normocephalic. Eyes are PERRLA. Sclerae are nonicteric. Oral mucosa is moist. NECK: Supple. LUNGS: Clear. HEART: S1, S2 normal. No S3. No S4. No any murmur. ABDOMEN: Soft, nontender. Bowel sounds are present. No organomegaly. EXTREMITIES: No clubbing, cyanosis, or edema. NEUROLOGIC: She is alert and oriented x4. There is no any motor or sensory deficit present. Cranial nerves are intact. SCALP: Shows some dandruff. LABORATORY DATA: Sodium of 117, potassium 4.5, chloride 87, CO2 of 23, BUN 26, creatinine 0.79, glycemia is ranging from 123 to 159, calcium 8.3. IMPRESSION: 1. Acute congestive heart failure with a diastolic dysfunction, but echocardiogram results are not back yet. 2. Hyponatremia, which seems to be syndrome of inappropriate antidiuretic hormone secretion. The patient is started on tolvaptan by Nephrology. 3. Coronary artery disease with apparently cardiac cath done in December 2017 with LAD blockage at 50%. 4. Elevated inflammatory markers. KAREEM is still pending. Apparently, she had a colonoscopy done in the last, I believe, 3 or 4 years and it was normal. 5. Bilateral lower extremity edema, most likely related to congestive heart failure, improved. 6. Uncontrolled hypertension, which is labile. PLAN: Plan is to use tolvaptan to control her hyponatremia. Also, she will continue on her Lidoderm patch for her left upper chest musculoskeletal pain. She will also continue her nonsteroidal anti-inflammatory agent for the same purpose. I will continue her DVT prophylaxis with Lovenox and she ambulates in the hallway daily. She seems to be doing somewhat better. Job ID: [id number]
--- NOTE | 2018-05-14 18:32 | PDOC.CTH ---
Cardiology Progress Note - Subjective No new issues. - Objective Vital Signs Temp Pulse Resp BP BP Pulse Ox 05/14/18 15:22 97.6 F 55 L 16 144/64 H 97 05/14/18 12:04 97.9 F 57 L 16 112/56 L 97 05/14/18 07:53 97.7 F 69 16 162/67 H 95 Weight 183 lb 8 oz 05/13/18 05/14/18 05/15/18 06:59 06:59 06:59 Intake Total 500 1230 540 Output Total 800 1300 1200 Balance -300 -70 -660 - Physical Examination General/Neuro: alert & oriented x3, NAD Neck: no JVD present Lungs: CTA, unlabored respirations Heart: RRR Abdomen: NT/ND Extremities: other: (no edema.) - Telemetry Telemetry Rhythm: S Blaze - Labs Result Diagrams: 05/13/18 08:20 05/14/18 06:09 Troponin/CKMB CK-MB (CK-2) 5.2 ng/mL (0-6.6) 05/11/18 04:49 Troponin I 0.010 ng/mL (< 0.028) 05/12/18 04:50 - Assessment/Plan 1. Acute diastolic CHF, resolved. 2. Hyponatremia 3. HTN 4. History of CAD PLAN: - Concern for SIADH. Worsening Na today. - Nephrology on board appreciate recs. - Tolvaptan first dose given this morning. - CV stable.
[2018-05-14] MEDS: Lidocaine 5% Patch TD PRN (20:05)
[2018-05-15 06:00] LABS: Anion Gap 14 mmol/L (10-20); BUN (Urea Nitrogen) 27 mg/dL (9.8-20.1); Calc. Creatinine Clearance 65 mL/min (70-130); Calcium 8.7 mg/dL (7.8-10.44); Carbon Dioxide 22 mmol/L (23-31); Chloride 93 mmol/L (98-107); Estimated GFR-MDRD 63; Glucose 87 mg/dL (83-110); Potassium 4.4 mmol/L (3.5-5.1); Sodium 125 mmol/L (136-145)
[2018-05-15] MEDS: Aspirin 81 mg Enteric Coated Tablet PO SCH ×2 (08:44→23:08)
[2018-05-15] MEDS: Gabapentin 100 MG CAP PO SCH ×3 (08:45→20:34)
[2018-05-15] MEDS: Atorvastatin Calcium 10 MG TAB PO SCH (08:45)
[2018-05-15] MEDS: Tolvaptan 15 MG TAB PO SCH (08:46)
[2018-05-15] MEDS: Enoxaparin Sodium 30 MG/0.3 ML SYRINGE SC SCH (08:47)
[2018-05-15] MEDS ORDERED: Gabapentin 100 MG CAP PO SCH (09:00)
--- NOTE | 2018-05-15 09:56 | PRG ---
DATE OF SERVICE: 05/15/2018 SUBJECTIVE: Ms. Lake is an 82-year-old white female, who was seen by the Renal Service for her acute hyponatremia. Serum sodium was declining. Yesterday, this was 117. She was started on tolvaptan 15 mg tablet once a day. Her serum sodium today is much improved at 125. She was started on free water restriction. The feeling is that she may have an SIADH which could also be transient. She was complaining of rib, left-sided chest pain. CT scan initially was negative when she came in. The pain is better with the lidocaine patch and she was started on gabapentin yesterday 100 mg p.o. t.i.d. No complaints of shortness of breath, but still with a mild left-sided chest pain. OBJECTIVE: VITAL SIGNS: Blood pressure 136/60, heart rate 57, respiratory rate 16, temperature 97.7, and pulse ox 97% GENERAL: Awake, alert, comfortable, not in distress. SKIN: Adequate turgor. HEENT: She has pinkish conjunctivae. Anicteric sclerae. No neck mass. No carotid bruits. No JVD. CHEST: No deformities. LUNGS: Clear breath sounds. No wheezing. No crackles. HEART: Normal sinus rhythm. No murmur. No gallops. No rubs. ABDOMEN: Globular, soft, nontender. No masses. EXTREMITIES: No edema or deformities. MEDICATIONS: Medications of May 15, 2018, reviewed. LABORATORY DATA: May 13, 2018; white count 11.5, hemoglobin 13. Sodium 125, potassium 4.4, chloride 93, carbon dioxide 22, BUN 27, creatinine 0.86, calcium 8.7. ASSESSMENT AND PLAN: 1. Acute hyponatremia-secondary to presumed syndrome of inappropriate antidiuretic hormone, improved. Most recent sodium was 125. Yesterday, it was 117. Continue tolvaptan 15 mg tablet once a day. In addition, we will continue free water restriction. If serum sodium reaches normal, we will probably discontinue tolvaptan. 2. Left-sided rib, chest pain-musculoskeletal/neuropathic pain-on gabapentin 100 mg p.o. t.i.d. Agree with current management. Recheck basic metabolic panel in a.m. Job ID: [id number]
[2018-05-15 11:58] LABS: CKMB 2.2 ng/mL (0-6.6); Troponin I Less than 0.010 ng/mL (< 0.028)
[2018-05-15] MEDS ORDERED: Hydrochlorothiazide 25 MG TAB PO SCH (12:30)
[2018-05-15] MEDS ORDERED: Sodium Chloride 0.9% 1,000 ML IV SCH (13:00)
--- NOTE | 2018-05-15 14:08 | PRG ---
DATE OF SERVICE: 05/15/2018 SUBJECTIVE: Ms. Lake is doing very well this morning. She did have an episode of hypotension earlier today with a code green call. I discussed the case with Dr. Mc. Ms. Lake has lost quite a bit of weight as well as diuresed over the last several days. Her last LVEF was 64% on a recent cardiac PET study performed in the office in December 2017. PHYSICAL EXAMINATION: GENERAL: Patient is a pleasant female who is in no acute distress. The patient appears their stated age. VITAL SIGNS: Blood pressure 130/61, pulse 55, and temperature 98. NEUROLOGIC: The patient is alert and oriented x3 with no focal neurologic deficits. HEENT: Sclerae without icterus. Mouth has moist mucous membranes with normal pallor. NECK: No JVD. Carotid upstroke brisk. No bruits bilaterally. LUNGS: Clear to auscultation with unlabored respirations. BACK: No scoliosis or kyphosis. CARDIAC: Regular rate and rhythm with normal S1 and S2. No S3 or S4 noted. No significant rubs, murmurs, thrills, or gallops noted throughout the precordium. PMI is not displaced. There is no parasternal heave. ABDOMEN: Soft, nontender, nondistended. No peritoneal signs present. No hepatosplenomegaly. No abnormal striae. EXTREMITIES: 2+ femoral and 2+ dorsalis pedis pulses. No cyanosis, clubbing, or edema. SKIN: No gross abnormalities. PERTINENT LABORATORY DATA: Hemoglobin 13.0. Creatinine 0.86. Sodium 125, up from 117. BNP 131. CK-troponin negative. IMPRESSION: 1. Hypotension. 2. Hyponatremia. 3. Diastolic heart failure. 4. Moderate aortic insufficiency. RECOMMENDATIONS: Ms. Lake's recent episode likely occurred due to volume contraction. She has improved after IV fluids. At this point, we will continue to closely observe. If she is stable and her sodium is stable, it will be okay from my standpoint to discharge home tomorrow. Otherwise, I have no further recommendations. Job ID: [id number]
--- NOTE | 2018-05-15 14:10 | PDOC.PN ---
- Subjective Encounter Start Date: 05/15/18 Encounter Start Time: 14:07 Subjective: pt seen and was sitting up in chair post shower and feeling good -: later Code Green called for slow HR on monitor -: Pt seen & examined again-feels "hazy & lethargic" Low BP noted during Code .started on IVF,bolus and then stedy rate care discussed w daughter at bedside. HR in high 50s now. will continue to monitor.p recheck w RN shows improvement in symptoms - Objective Resuscitation Status - Order Detail: 05/11/18 01:55 Resuscitation Status Routine Resuscitation Status: FULL: Full Resuscitation Vital Signs & Weight: Vital Signs (12 hours) Temp Pulse Resp BP BP Pulse Ox 05/15/18 12:31 98 F 55 L 18 138/61 97 05/15/18 07:29 97.7 F 57 L 16 136/60 97 05/15/18 03:30 97.8 F 54 L 16 138/63 96 Weight Weight 180 lb 6.4 oz I&O: 05/14/18 05/15/18 05/16/18 06:59 06:59 06:59 Intake Total 1230 920 Output Total 1300 2800 Balance -70 -1880 Result Diagrams: 05/13/18 08:20 05/15/18 04:02 Additional Labs: Accuchecks 05/15/18 05/14/18 05/14/18 10:56 20:28 16:28 POC Glucose 119 H 124 H 163 H 05/14/18 05:27 POC Glucose 146 H Selected Entries 05/11/18 05/12/18 05/13/18 15:13 04:13 08:29 Weight 187 lb 6.4 oz 186 lb 3.2 oz 185 lb 3.2 oz 05/14/18 05/15/18 07:52 04:50 Weight 183 lb 8 oz 180 lb 6.4 oz Laboratory Tests 05/10/18 05/10/18 05/11/18 19:35 19:35 02:32 Sodium 127 L 125 L CK-MB (CK-2) Troponin I B-Natriuretic Peptide 1132.9 H 05/11/18 05/12/18 05/13/18 02:32 12:00 08:20 Sodium 121 L 119 L* CK-MB (CK-2) Troponin I B-Natriuretic Peptide 1352.2 H 05/14/18 05/15/18 05/15/18 06:09 04:02 10:43 Sodium 117 L* 125 L CK-MB (CK-2) Troponin I B-Natriuretic Peptide 131.0 H 05/15/18 10:43 Sodium CK-MB (CK-2) 2.2 Troponin I Less than 0.010 B-Natriuretic Peptide Phys Exam - Physical Examination Constitutional: NAD HEENT: PERRLA, moist MMs, sclera anicteric, oral pharynx no lesions Neck: no nodes, no JVD, supple, full ROM Respiratory: no wheezing, no rales, no rhonchi, clear to auscultation bilateral Cardiovascular: RRR, no significant murmur Gastrointestinal: soft, non-tender, no distention, positive bowel sounds Musculoskeletal: no edema, pulses present Neurological: non-focal, normal sensation, moves all 4 limbs Psychiatric: normal affect, A&O x 3 Skin: no rash Dx/Plan (1) Hypotension Status: Acute Comment: suspect hypovolemia from overdiuresis. (2) Sinus bradycardia Code(s): R00.1 - BRADYCARDIA, UNSPECIFIED Status: Acute (3) Hyponatremia Code(s): E87.1 - HYPO-OSMOLALITY AND HYPONATREMIA Status: Acute Comment: started on Tolvaptan. ? SIADH. getting better (4) Diastolic HF (heart failure) Code(s): I50.30 - UNSPECIFIED DIASTOLIC (CONGESTIVE) HEART FAILURE Status: Resolved Qualifiers: Heart failure chronicity: acute Qualified Code(s): I50.31 - Acute diastolic (congestive) heart failure (5) Coronary artery disease Code(s): I25.10 - ATHSCL HEART DISEASE OF [place] CORONARY ARTERY W/O ANG PCTRS Status: Chronic Qualifiers: Coronary Disease-Associated Artery/Lesion type: [place] artery (6) Hypertension Code(s): I10 - ESSENTIAL (PRIMARY) HYPERTENSION Status: Chronic Qualifiers: Hypertension type: essential hypertension Qualified Code(s): I10 - Essential (primary) hypertension - Plan plan discussed w/ family, PT/OT, out of bed/ambulate EKG reviewed -sinus bardycardia in 50s. case discussed w Cardiology-agree w -: IVF.monitor on tele -: cont tolvaptan w recheck sodium in morning. lasix on hold -: Repeat ECHO reportedly stable-official read pending -: pt stable for now. monitor for fluid status closely. am labs Hold Imdur. add parameters for benicar * .Time spent in care including Code Green -45 minutes Review of Systems - Review of Systems Constitutional: weakness, malaise. negative: fever, chills, sweats, other ENT: negative: Ear Pain, Ear Discharge, Nose Pain, Nose Discharge, Nose Congestion, Mouth Pain, Mouth Swelling, Throat Pain, Throat Swelling, Other Respiratory: negative: Cough, Dry, Shortness of Breath, Hemoptysis, SOB with Excertion, Pleuritic Pain, Sputum, Wheezing Cardiovascular: light headedness. negative: chest pain, palpitations, orthopnea , paroxysmal nocturnal dyspnea, edema, other Genitourinary: negative: Dysuria, Frequency, Incontinence, Hematuria, Retention , Other Musculoskeletal: negative: Neck Pain, Shoulder Pain, Arm Pain, Back Pain, Hand Pain, Leg Pain, Foot Pain, Other Neurological: negative: Weakness, Numbness, Incoordination, Change in Speech, Confusion, Seizures, Other - Medications/Allergies Allergies/Adverse Reactions: Allergies Allergy/AdvReac Type Severity Reaction Status Date / Time metoprolol [From Toprol XL] AdvReac Severe Verified 05/11/18 15:51 Medications: Current Medications Acetaminophen (Tylenol) 650 mg PO Q4H PRN PRN Reason: Headache/Fever/Mild Pain (1-3) Last Admin: 05/13/18 20:29 Dose: 650 mg Aspirin (Ecotrin) 81 mg PO BID [facility] Last Admin: 05/15/18 08:44 Dose: 81 mg Atorvastatin Calcium (Lipitor) 10 mg PO DAILY [facility] Last Admin: 05/15/18 08:45 Dose: 10 mg Dextrose/Water (Dextrose 50%) 25 gm SLOW IVP PRN PRN PRN Reason: Hypoglycemia Diphenhydramine HCl (Benadryl) 25 mg PO Q6H PRN PRN Reason: Itching & Insomnia Last Admin: 05/13/18 02:01 Dose: 25 mg Enoxaparin Sodium (Lovenox) 30 mg SC 0900 [facility] Last Admin: 05/15/18 08:47 Dose: 30 mg Gabapentin (Neurontin) 100 mg PO TID [facility] Last Admin: 05/15/18 08:45 Dose: 100 mg Glucagon (Glucagon) 1 mg IM PRN PRN PRN Reason: Hypoglycemia Hydralazine HCl (Apresoline) 10 mg SLOW IVP Q4H PRN PRN Reason: SBP Greater Than 170 Last Admin: 05/11/18 15:45 Dose: 10 mg Hydrochlorothiazide (Hydrochlorothiazide) 12.5 mg PO BID [facility] Dextrose/Water (D5w) 1,000 mls @ 0 mls/hr IV .Q0M PRN PRN Reason: Hypoglycemia Sodium Chloride (Normal Saline 0.9%) 1,000 mls @ 50 mls/hr IV .Q20H [facility] Stop: 05/16/18 08:59 Insulin Human Regular (Humulin R) 0 units SC .MILD SLIDING SCALE PRN PRN Reason: Mild Correctional Scale Lidocaine (Lidoderm 5% Patch) 1 patch TD Q24H PRN PRN Reason: Pain Last Admin: 05/14/18 20:05 Dose: 1 patch Miscellaneous Medication (Lidocaine Patch Removal) 1 each TOP Q24H PRN PRN Reason: REMOVE AFTER 12 HOURS Last Admin: 05/14/18 08:09 Dose: 1 each Olmesartan (Benicar) 20 mg PO BID [facility] Sodium Chloride (Flush - Normal Saline) 10 ml IVF Q12HR [facility] Last Admin: 05/15/18 08:50 Dose: 10 ml Sodium Chloride (Flush - Normal Saline) 10 ml IVF PRN PRN PRN Reason: Saline Flush Tolvaptan (Samsca) 15 mg PO DAILY [facility] Last Admin: 05/15/18 08:46 Dose: 15 mg
[2018-05-15] MEDS: Senokot S 8.6-50 MG TAB PO SCH (20:34)
[2018-05-15] MEDS: Hydrochlorothiazide 25 MG TAB PO SCH (20:36)
[2018-05-15] MEDS: Lidocaine 5% Patch TD PRN (20:37)
[2018-05-16 05:41] LABS: Anion Gap 14 mmol/L (10-20); BUN (Urea Nitrogen) 26 mg/dL (9.8-20.1); Calc. Creatinine Clearance 62 mL/min (70-130); Calcium 8.7 mg/dL (7.8-10.44); Carbon Dioxide 23 mmol/L (23-31); Chloride 102 mmol/L (98-107); Estimated GFR-MDRD 59; Glucose 90 mg/dL (83-110); Potassium 4.5 mmol/L (3.5-5.1); Sodium 134 mmol/L (136-145)
[2018-05-16] MEDS ORDERED: Gentamicin 80 MG/2 ML VIAL ONE (07:01)
[2018-05-16] MEDS ORDERED: CEFAZOLIN 1 GM VIAL ONE (07:01)
[2018-05-16 07:45] LABS: ANA Symphony (Qualitative) Negative (Negative); ANA Symphony (Quantitative) 0.2 Ratio (< 0.7 Negative); dsDNA IgG Antibody 0.9 IU/mL (<10 Negative)
[2018-05-16] MEDS ORDERED: Midazolam HCl 2 mg/2 ml Vial ONE (08:45)
--- NOTE | 2018-05-16 10:38 | PRG ---
DATE OF SERVICE: 05/16/2018 SUBJECTIVE: Ms. Lake is an 82-year-old white female, who was seen for her hyponatremia. 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 She was started on tolvaptan, which just dramatically improved her serum sodium. She is also on free water restriction. In the interim, she developed symptomatic bradycardia. A pacemaker was placed this morning. She is feeling better. OBJECTIVE: VITAL SIGNS: Blood pressure is 157/58, heart rate 70, respiratory rate 17, and pulse ox 92%. GENERAL: The patient is awake, alert, comfortable, not in distress. SKIN: Adequate turgor. HEENT: Pinkish conjunctivae. Anicteric sclerae. NECK: No neck mass. No carotid bruits. No JVD. CHEST: No deformities. LUNGS: Clear breath sounds. No wheezing. No crackles. HEART: Normal sinus rhythm. No murmurs. No gallops. No rubs. ABDOMEN: Globular, soft, nontender. No masses. EXTREMITIES: No edema. No deformities. MEDICATIONS: Medications of May 16, 2018, reviewed. LABORATORY DATA: Laboratories of May 16, 2018; sodium 134, potassium 4.5, chloride 102, carbon dioxide 23, BUN 26, creatinine 0.91, glucose 90, calcium 8.7. White count 11.5, hemoglobin 13-this was done on May 13, 2018. ASSESSMENT AND PLAN: 1. Hyponatremia from syndrome of inappropriate antidiuretic hormone, much improved with tolvaptan. We will give her last dose of tolvaptan today. We will discontinue it starting tomorrow. Continue free water restriction. 2. Symptomatic bradycardia-the patient received pacemaker. 3. Overall, agree with current management. Job ID: [id number]
[2018-05-16] MEDS: Tolvaptan 15 MG TAB PO SCH (10:42)
[2018-05-16] MEDS: Acetaminophen 325 MG TAB PO PRN ×2 (10:42→16:52)
[2018-05-16] MEDS: Senokot S 8.6-50 MG TAB PO SCH ×2 (10:43→20:27)
[2018-05-16] MEDS: Gabapentin 100 MG CAP PO SCH ×3 (10:43→20:27)
[2018-05-16] MEDS: Atorvastatin Calcium 10 MG TAB PO SCH (10:44)
[2018-05-16] MEDS: Hydrochlorothiazide 25 MG TAB PO SCH ×2 (10:45→20:27)
[2018-05-16] MEDS: Aspirin 81 mg Enteric Coated Tablet PO SCH ×2 (10:46→20:28)
[2018-05-16] MEDS: Enoxaparin Sodium 30 MG/0.3 ML SYRINGE SC SCH (10:49)
--- NOTE | 2018-05-16 13:57 | RAD ---
AP VIEW CHEST: 05/16/2018 HISTORY: Post cardiac placement device. COMPARISON: 05/10/2018 FINDINGS: AP view chest demonstrates a dual-lead intracardiac pacing device, which has been placed. No evidenc e of pneumothorax is seen. No evidence of hemothorax is seen. Atrial and ventricular leads are in g ood position. IMPRESSION: Placement of an intracardiac pacing device with no evidence of post procedure abnormality seen. POS: [facility]
--- NOTE | 2018-05-16 14:12 | PDOC.PN ---
- Subjective Encounter Start Date: 05/16/18 Encounter Start Time: 14:10 Subjective: feels much better.care discussed w family at bedside -: s/p PPM earlier this morning - Objective Resuscitation Status - Order Detail: 05/11/18 01:55 Resuscitation Status Routine Resuscitation Status: FULL: Full Resuscitation MAR Reviewed: Yes Vital Signs & Weight: Vital Signs (12 hours) Temp 05/16/18 12:00 97.2 F L 05/16/18 07:27 97.6 F 05/16/18 03:54 97.8 F Weight Weight 180 lb 6.4 oz Most Recent Monitor Data Heart Rate from ECG 69 NIBP 134/64 NIBP BP-Mean 87 Respiration from ECG 13 SpO2 95 I&O: 05/15/18 05/16/18 05/17/18 06:59 06:59 06:59 Intake Total 920 1324 Output Total 2800 850 300 Balance -1880 474 -300 Result Diagrams: 05/13/18 08:20 05/16/18 04:55 Additional Labs: Accuchecks 05/16/18 05/16/18 05/15/18 11:00 05:46 23:12 POC Glucose 95 98 124 H 05/15/18 05/15/18 05/15/18 20:11 17:02 05:26 POC Glucose 154 H 94 111 H Laboratory Tests 05/10/18 05/11/18 05/12/18 19:35 02:32 12:00 Sodium 127 L 125 L 121 L 05/13/18 05/14/18 05/15/18 08:20 06:09 04:02 Sodium 119 L* 117 L* 125 L 05/16/18 04:55 Sodium 134 L Phys Exam - Physical Examination Constitutional: NAD HEENT: PERRLA, moist MMs, sclera anicteric, oral pharynx no lesions Neck: no nodes, no JVD, supple, full ROM Respiratory: no wheezing, no rales, no rhonchi, clear to auscultation bilateral Cardiovascular: RRR, no significant murmur, no rub Gastrointestinal: soft, non-tender, no distention, positive bowel sounds Musculoskeletal: no edema, pulses present Neurological: non-focal, normal sensation, moves all 4 limbs Psychiatric: normal affect, A&O x 3 Skin: no rash Dx/Plan (1) Hypotension Status: Acute Comment: suspect hypovolemia from overdiuresis. (2) Sinus bradycardia Code(s): R00.1 - BRADYCARDIA, UNSPECIFIED Status: Acute Comment: s/p PPM (3) Hyponatremia Code(s): E87.1 - HYPO-OSMOLALITY AND HYPONATREMIA Status: Acute Comment: started on Tolvaptan. ? SIADH. getting better (4) Diastolic HF (heart failure) Code(s): I50.30 - UNSPECIFIED DIASTOLIC (CONGESTIVE) HEART FAILURE Status: Resolved Qualifiers: Heart failure chronicity: acute Qualified Code(s): I50.31 - Acute diastolic (congestive) heart failure (5) Coronary artery disease Code(s): I25.10 - ATHSCL HEART DISEASE OF [place] CORONARY ARTERY W/O ANG PCTRS Status: Chronic Qualifiers: Coronary Disease-Associated Artery/Lesion type: [place] artery (6) Hypertension Code(s): I10 - ESSENTIAL (PRIMARY) HYPERTENSION Status: Chronic Qualifiers: Hypertension type: essential hypertension Qualified Code(s): I10 - Essential (primary) hypertension - Plan plan discussed w/ family, DVT proph w/SCDs Clinically better.start DC planning -: rehab eval -: cont benicar. Imdur on hold d/t low BP yesterday.monitor -: sodium better w Tolvaptan.last dose today -: DC next 24 hours if cleared by cardiology * . Review of Systems - Review of Systems Constitutional: negative: fever, chills, sweats, weakness, malaise, other Respiratory: negative: Cough, Dry, Shortness of Breath, Hemoptysis, SOB with Excertion, Pleuritic Pain, Sputum, Wheezing Cardiovascular: negative: chest pain, palpitations, orthopnea, paroxysmal nocturnal dyspnea, edema, light headedness, other Gastrointestinal: negative: Nausea, Vomiting, Abdominal Pain, Diarrhea, Constipation, Melena, Hematochezia, Other Genitourinary: negative: Dysuria, Frequency, Incontinence, Hematuria, Retention , Other Musculoskeletal: negative: Neck Pain, Shoulder Pain, Arm Pain, Back Pain, Hand Pain, Leg Pain, Foot Pain, Other Neurological: negative: Weakness, Numbness, Incoordination, Change in Speech, Confusion, Seizures, Other - Medications/Allergies Allergies/Adverse Reactions: Allergies Allergy/AdvReac Type Severity Reaction Status Date / Time metoprolol [From Toprol XL] AdvReac Severe Verified 05/11/18 15:51 Medications: Current Medications Acetaminophen (Tylenol) 650 mg PO Q4H PRN PRN Reason: Headache/Fever/Mild Pain (1-3) Last Admin: 05/16/18 10:42 Dose: 650 mg Aspirin (Ecotrin) 81 mg PO BID [facility] Last Admin: 05/16/18 10:46 Dose: 81 mg Atorvastatin Calcium (Lipitor) 10 mg PO DAILY [facility] Last Admin: 05/16/18 10:44 Dose: 10 mg Dextrose/Water (Dextrose 50%) 25 gm SLOW IVP PRN PRN PRN Reason: Hypoglycemia Diphenhydramine HCl (Benadryl) 25 mg PO Q6H PRN PRN Reason: Itching & Insomnia Last Admin: 05/13/18 02:01 Dose: 25 mg Enoxaparin Sodium (Lovenox) 30 mg SC 0900 [facility] Last Admin: 05/16/18 10:49 Dose: 30 mg Gabapentin (Neurontin) 100 mg PO TID [facility] Last Admin: 05/16/18 10:43 Dose: 100 mg Glucagon (Glucagon) 1 mg IM PRN PRN PRN Reason: Hypoglycemia Hydralazine HCl (Apresoline) 10 mg SLOW IVP Q4H PRN PRN Reason: SBP Greater Than 170 Last Admin: 05/11/18 15:45 Dose: 10 mg Hydrochlorothiazide (Hydrochlorothiazide) 12.5 mg PO BID [facility] Last Admin: 05/16/18 10:45 Dose: 12.5 mg Dextrose/Water (D5w) 1,000 mls @ 0 mls/hr IV .Q0M PRN PRN Reason: Hypoglycemia Insulin Human Regular (Humulin R) 0 units SC .MILD SLIDING SCALE PRN PRN Reason: Mild Correctional Scale Lidocaine (Lidoderm 5% Patch) 1 patch TD Q24H PRN PRN Reason: Pain Last Admin: 05/15/18 20:37 Dose: 1 patch Miscellaneous Medication (Lidocaine Patch Removal) 1 each TOP Q24H PRN PRN Reason: REMOVE AFTER 12 HOURS Last Admin: 05/14/18 08:09 Dose: 1 each Olmesartan (Benicar) 20 mg PO BID [facility] Last Admin: 05/16/18 10:44 Dose: 20 mg Senna/Docusate Sodium (Senokot S) 1 tab PO BID [facility] Last Admin: 05/16/18 10:43 Dose: 1 tab Sodium Chloride (Flush - Normal Saline) 10 ml IVF Q12HR [facility] Last Admin: 05/16/18 10:46 Dose: 10 ml Sodium Chloride (Flush - Normal Saline) 10 ml IVF PRN PRN PRN Reason: Saline Flush
[2018-05-16] MEDS ORDERED: Cyclobenzaprine 10 MG TAB PO PRN (18:37)
--- NOTE | 2018-05-16 20:40 | RAD ---
PORTABLE CHEST: 05/16/18 HISTORY: Pacemaker placement. COMPARISON: Earlier examination the same day. Heart size is within normal limits. A transvenous pacemaker is in place. There is mild left apical pn eumothorax probably 10 to slightly greater than 10%. There is some atelectatic change also seen withi n the left lung. The right lung is clear. IMPRESSION: Pneumothorax probably in the 10% range. These findings were telephoned to Katharine, the patient's nurse at the time of this dictation. POS: [facility]
[2018-05-17] MEDS: traMADol HCl 50 MG TAB PO PRN ×2 (02:15→10:25)
[2018-05-17 05:30] LABS: Anion Gap 12 mmol/L (10-20); BUN (Urea Nitrogen) 32 mg/dL (9.8-20.1); Calc. Creatinine Clearance 65 mL/min (70-130); Calcium 8.7 mg/dL (7.8-10.44); Carbon Dioxide 22 mmol/L (23-31); Chloride 103 mmol/L (98-107); Estimated GFR-MDRD 63; Glucose 107 mg/dL (83-110); Potassium 4.8 mmol/L (3.5-5.1); Sodium 132 mmol/L (136-145)
--- NOTE | 2018-05-17 08:59 | PRG ---
DATE OF SERVICE: 05/17/2018 SUBJECTIVE: Ms. 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 She was started on tolvaptan 15 mg tablet once a day with improvement of the serum sodium. She continues to be on a free water restriction of about 1 L per day. In the interim, she developed symptomatic bradycardia. Pacemaker was placed. A subsequent chest x-ray showed a small pneumothorax of about 10%. She is clinically asymptomatic. No new complaints today. No chest pain or shortness of breath. OBJECTIVE: VITAL SIGNS: Blood pressure is 108/56, heart rate 64, respiratory rate 15, O2 sats 98%. GENERAL EXAM: Noted to be awake, alert, comfortable, not in distress. SKIN: Adequate turgor. HEENT: She has a pinkish conjunctivae. Anicteric sclerae. NECK: No neck mass. No carotid bruits. No JVD. CHEST: No deformities. LUNGS: Clear breath sounds. No wheezing. No crackles. HEART: Normal sinus rhythm. No murmur. No gallops. No rubs. ABDOMEN: Globular, soft, nontender. No masses. EXTREMITIES: No edema. No deformities. MEDICATIONS: Medications of May 17, 2018, was reviewed. LABORATORY DATA: Laboratories of May 13, 2018, white count 11.5, hemoglobin 13. May 17, 2018, sodium 132, potassium 4.8, chloride 103, carbon dioxide 22, BUN is 32, creatinine 0.86, glucose 107, calcium 8.7. ASSESSMENT AND PLAN: 1. 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 Continue free water restriction. We will give a one time dose of tolvaptan 15 mg tablet. I will also start her on sodium chloride 1 g b.i.d. The patient on exam is not clinically volume overloaded. The chest x-ray looks clear, which was done yesterday. No evidence of CHF. 2. Symptomatic bradycardia, much improved, status post pacemaker placement. 3. Case discussed at length with the patient and her children. Job ID: [id number]
[2018-05-17] MEDS ORDERED: Tolvaptan 15 MG TAB PO SCH ×2 (09:00→10:15)
[2018-05-17] MEDS ORDERED: Sodium Chloride 1 GM TAB PO SCH ×2 (09:00→10:15)
--- NOTE | 2018-05-17 09:18 | RAD ---
PORTABLE CHEST: 05/17/2018 PROVIDED CLINICAL HISTORY: Follow up pneumothorax. COMPARISON: Examination performed on 05/16/2018 at 7:37 p.m. FINDINGS: The cardiac and mediastinal silhouette is unchanged in appearance. A left-sided pneumothorax is rede monstrated, without apparent interval change. No focal air space disease or pleural fluid apparent. Left subclavian cardiac pacing device is redemonstrated, in a similar position. IMPRESSION: Stable left pneumothorax. POS: [facility]
[2018-05-17] MEDS: Hydrochlorothiazide 25 MG TAB PO SCH ×2 (10:21→20:02)
[2018-05-17] MEDS: Senokot S 8.6-50 MG TAB PO SCH ×2 (10:21→20:01)
[2018-05-17] MEDS: Atorvastatin Calcium 10 MG TAB PO SCH (10:21)
[2018-05-17] MEDS: Gabapentin 100 MG CAP PO SCH ×3 (10:21→20:02)
[2018-05-17] MEDS: Aspirin 81 mg Enteric Coated Tablet PO SCH ×2 (10:25→20:02)
[2018-05-17] MEDS: Enoxaparin Sodium 30 MG/0.3 ML SYRINGE SC SCH (10:28)
--- NOTE | 2018-05-17 15:17 | PDOC.PN ---
- Subjective Encounter Start Date: 05/17/18 Encounter Start Time: 15:16 Subjective: no new complaints. feels well. -: care discussed w saon and daughter at bedside - Objective Resuscitation Status - Order Detail: 05/11/18 01:55 Resuscitation Status Routine Resuscitation Status: FULL: Full Resuscitation MAR Reviewed: Yes Vital Signs & Weight: Vital Signs (12 hours) Temp Pulse Pulse Pulse BP BP BP 05/17/18 10:50 97.3 F L 05/17/18 09:11 70 63 116/49 L 05/17/18 08:34 74 71 102/65 111/52 L 123/50 L 05/17/18 08:00 05/17/18 07:20 97.4 F L 05/17/18 04:00 97.0 F L BP Pulse Ox Pulse Ox Pulse Ox Pulse Ox 05/17/18 10:50 05/17/18 09:11 114/33 L 100 99 05/17/18 08:34 99 98 05/17/18 08:00 98 05/17/18 07:20 05/17/18 04:00 Weight Weight 178 lb 3.2 oz Most Recent Monitor Data Heart Rate from ECG 60 NIBP 93/44 NIBP BP-Mean 60 Respiration from ECG 15 SpO2 94 I&O: 05/16/18 05/17/18 05/18/18 06:59 06:59 06:59 Intake Total 1324 950 Output Total 850 1650 Balance 474 -700 Result Diagrams: 05/13/18 08:20 05/17/18 04:56 Additional Labs: Accuchecks 05/17/18 05/17/18 05/16/18 10:32 05:33 20:03 POC Glucose 108 103 119 H 05/16/18 16:40 POC Glucose 123 H Laboratory Tests 05/10/18 05/11/18 05/11/18 19:35 02:32 08:42 Sodium 127 L 125 L KAREEM Screen Negative KAREEM Scrn Qualitative Negative KAREEM Scrn Quantitative 0.2 05/12/18 05/13/18 05/14/18 12:00 08:20 06:09 Sodium 121 L 119 L* 117 L* KAREEM Screen KAREEM Scrn Qualitative KAREEM Scrn Quantitative 05/15/18 05/16/18 05/17/18 04:02 04:55 04:56 Sodium 125 L 134 L 132 L KAREEM Screen KAREEM Scrn Qualitative KAREEM Scrn Quantitative Phys Exam - Physical Examination Constitutional: NAD HEENT: PERRLA, moist MMs, sclera anicteric, oral pharynx no lesions Neck: no nodes, no JVD, supple, full ROM Respiratory: no wheezing, no rales, no rhonchi, clear to auscultation bilateral Cardiovascular: RRR, no significant murmur, no rub Gastrointestinal: soft, non-tender, no distention, positive bowel sounds Musculoskeletal: no edema, pulses present Neurological: non-focal, normal sensation, moves all 4 limbs Psychiatric: normal affect, A&O x 3 Skin: no rash Dx/Plan (1) Sinus bradycardia Code(s): R00.1 - BRADYCARDIA, UNSPECIFIED Status: Acute Comment: s/p PPM (2) Hypotension Status: Resolved Comment: suspect hypovolemia from overdiuresis. (3) Hyponatremia Code(s): E87.1 - HYPO-OSMOLALITY AND HYPONATREMIA Status: Acute Comment: started on Tolvaptan. ? SIADH. getting better (4) Diastolic HF (heart failure) Code(s): I50.30 - UNSPECIFIED DIASTOLIC (CONGESTIVE) HEART FAILURE Status: Resolved Qualifiers: Heart failure chronicity: acute Qualified Code(s): I50.31 - Acute diastolic (congestive) heart failure (5) Coronary artery disease Code(s): I25.10 - ATHSCL HEART DISEASE OF [place] CORONARY ARTERY W/O ANG PCTRS Status: Chronic Qualifiers: Coronary Disease-Associated Artery/Lesion type: [place] artery (6) Hypertension Code(s): I10 - ESSENTIAL (PRIMARY) HYPERTENSION Status: Chronic Qualifiers: Hypertension type: essential hypertension Qualified Code(s): I10 - Essential (primary) hypertension - Plan DVT proph w/SCDs OK to DC if rehab accepts,if not,Home w HH. family agreeable -: Tolvaptan 1 more dose today. sodium better -: cont meds as below.HD stable s/p PPM -: Cardiology clearance needed prior to DC * . Review of Systems - Review of Systems Constitutional: negative: fever, chills, sweats, weakness, malaise, other ENT: negative: Ear Pain, Ear Discharge, Nose Pain, Nose Discharge, Nose Congestion, Mouth Pain, Mouth Swelling, Throat Pain, Throat Swelling, Other Respiratory: negative: Cough, Dry, Shortness of Breath, Hemoptysis, SOB with Excertion, Pleuritic Pain, Sputum, Wheezing Cardiovascular: negative: chest pain, palpitations, orthopnea, paroxysmal nocturnal dyspnea, edema, light headedness, other Gastrointestinal: negative: Nausea, Vomiting, Abdominal Pain, Diarrhea, Constipation, Melena, Hematochezia, Other Genitourinary: negative: Dysuria, Frequency, Incontinence, Hematuria, Retention , Other Musculoskeletal: negative: Neck Pain, Shoulder Pain, Arm Pain, Back Pain, Hand Pain, Leg Pain, Foot Pain, Other Neurological: negative: Weakness, Numbness, Incoordination, Change in Speech, Confusion, Seizures, Other - Medications/Allergies Allergies/Adverse Reactions: Allergies Allergy/AdvReac Type Severity Reaction Status Date / Time metoprolol [From Toprol XL] AdvReac Severe Verified 05/11/18 15:51 Medications: Current Medications Acetaminophen (Tylenol) 650 mg PO Q4H PRN PRN Reason: Headache/Fever/Mild Pain (1-3) Last Admin: 05/16/18 16:52 Dose: 650 mg Aspirin (Ecotrin) 81 mg PO BID [facility] Last Admin: 05/17/18 10:25 Dose: 81 mg Atorvastatin Calcium (Lipitor) 10 mg PO DAILY [facility] Last Admin: 05/17/18 10:21 Dose: 10 mg Cyclobenzaprine HCl (Flexeril) 10 mg PO TIDPRN PRN PRN Reason: Muscle Spasms Dextrose/Water (Dextrose 50%) 25 gm SLOW IVP PRN PRN PRN Reason: Hypoglycemia Diphenhydramine HCl (Benadryl) 25 mg PO Q6H PRN PRN Reason: Itching & Insomnia Last Admin: 05/13/18 02:01 Dose: 25 mg Enoxaparin Sodium (Lovenox) 30 mg SC 0900 [facility] Last Admin: 05/17/18 10:28 Dose: 30 mg Gabapentin (Neurontin) 100 mg PO TID [facility] Last Admin: 05/17/18 10:21 Dose: 100 mg Glucagon (Glucagon) 1 mg IM PRN PRN PRN Reason: Hypoglycemia Hydralazine HCl (Apresoline) 10 mg SLOW IVP Q4H PRN PRN Reason: SBP Greater Than 170 Last Admin: 05/11/18 15:45 Dose: 10 mg Hydrochlorothiazide (Hydrochlorothiazide) 12.5 mg PO BID [facility] Last Admin: 05/17/18 10:21 Dose: 12.5 mg Dextrose/Water (D5w) 1,000 mls @ 0 mls/hr IV .Q0M PRN PRN Reason: Hypoglycemia Insulin Human Regular (Humulin R) 0 units SC .MILD SLIDING SCALE PRN PRN Reason: Mild Correctional Scale Lidocaine (Lidoderm 5% Patch) 1 patch TD Q24H PRN PRN Reason: Pain Last Admin: 05/15/18 20:37 Dose: 1 patch Miscellaneous Medication (Lidocaine Patch Removal) 1 each TOP Q24H PRN PRN Reason: REMOVE AFTER 12 HOURS Last Admin: 05/14/18 08:09 Dose: 1 each Olmesartan (Benicar) 20 mg PO BID [facility] Last Admin: 05/17/18 10:21 Dose: 20 mg Senna/Docusate Sodium (Senokot S) 1 tab PO BID [facility] Last Admin: 05/17/18 10:21 Dose: 1 tab Sodium Chloride (Flush - Normal Saline) 10 ml IVF Q12HR [facility] Last Admin: 05/17/18 10:47 Dose: 10 ml Sodium Chloride (Flush - Normal Saline) 10 ml IVF PRN PRN PRN Reason: Saline Flush Sodium Chloride (Sodium Chloride) 1 gm PO BID [facility] Tolvaptan (Samsca) 15 mg PO DAILY [facility] Tramadol HCl (Ultram) 50 mg PO Q4H PRN PRN Reason: Pain 4-6 Last Admin: 05/17/18 10:25 Dose: 50 mg
--- NOTE | 2018-05-17 15:58 | PRG ---
DATE OF SERVICE: 05/17/2018 SUBJECTIVE: Ms. Lake is doing well. No current complaints. She states she is sore overlying the pacer. OBJECTIVE: VITAL SIGNS: Blood pressure 116/49, pulse 60, and respirations 20. LUNGS: Clear to auscultation. HEART: Regular rate and rhythm. ABDOMEN: Soft, nontender, and nondistended. EXTREMITIES: No edema. IMPRESSION: 1. Status post pacemaker. 2. Sick sinus syndrome. 3. Small pneumothorax. RECOMMENDATIONS: Ms. Lake is doing well. At this point, recommend continued conservative therapy. Her pneumothorax is small and unchanged from yesterday. I discussed the case with Dr. Tommy Sheffield. It is okay from my standpoint and Dr. Sheffield' standpoint to discharge home. Otherwise, I have no further recommendations. Job ID: [id number]
[2018-05-17] MEDS: Sodium Chloride 1 GM TAB PO SCH (20:02)
--- NOTE | 2018-05-17 20:11 | CCL ---
INDICATIONS FOR PROCEDURE: This is an 82-year-old female with sick sinus syndrome with severe bradycardia which is symptomatic a nd long pause with sinus massage. She was advised to undergo dural chamber pacemaker insertion due to risk of complete AV heart block with the high grade of AV block that she was noted to have. She was taken to cardiac labels molder where she underwent the procedure today without difficulties or com plications. She was implanted with a dual chamber pacemaker [employer] with two screw-in leads, one i n the atrium and the ventricle. There were no difficulties or complications encountered. For the pro cedure, she was given 2 mg of IV versed for conscious sedation. Throughout the procedure was monitore d by an independent observer present for heart rate, blood pressure and O2 saturations and these all remained stable. The pacemaker was set with the upper rate of 120 the lower rate was set at 60. She was implanted with an [employer] MRI compatible device.
[2018-05-18] MEDS ORDERED: Tolvaptan 15 MG TAB PO SCH (09:00)
[2018-05-18 09:14] LABS: Anion Gap 12 mmol/L (10-20); BUN (Urea Nitrogen) 32 mg/dL (9.8-20.1); Calc. Creatinine Clearance 49 mL/min (70-130); Calcium 8.9 mg/dL (7.8-10.44); Carbon Dioxide 25 mmol/L (23-31); Chloride 101 mmol/L (98-107); Estimated GFR-MDRD 45; Glucose 228 mg/dL (83-110); Potassium 4.3 mmol/L (3.5-5.1); Sodium 134 mmol/L (136-145)
[2018-05-18] MEDS: Hydrochlorothiazide 25 MG TAB PO SCH (09:32)
[2018-05-18] MEDS: Sodium Chloride 1 GM TAB PO SCH ×2 (09:34→21:31)
[2018-05-18] MEDS: Gabapentin 100 MG CAP PO SCH ×3 (09:34→21:31)
[2018-05-18] MEDS: Atorvastatin Calcium 10 MG TAB PO SCH (09:34)
[2018-05-18] MEDS: Aspirin 81 mg Enteric Coated Tablet PO SCH ×2 (09:34→21:31)
[2018-05-18] MEDS: Enoxaparin Sodium 30 MG/0.3 ML SYRINGE SC SCH (09:35)
[2018-05-18] MEDS: Senokot S 8.6-50 MG TAB PO SCH ×2 (09:36→21:27)
--- NOTE | 2018-05-18 09:57 | PRG ---
DATE OF SERVICE: 05/18/2018 SUBJECTIVE: Ms. 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 Serum sodium has slowly been improving. I have started her on sodium chloride tablet 1 g p.o. b.i.d. yesterday. In addition, we gave her one more dose of tolvaptan. Serum sodium is improved at 134. The patient denies any chest pain or shortness of breath. Please note that in the interim, she had a pacemaker placed due to symptomatic bradycardia. No other complaints today. OBJECTIVE: VITAL SIGNS: Blood pressure 106/69, heart rate 68, respiratory rate 12, temperature 97.8, and pulse ox 95%. GENERAL: Awake, alert, supine, comfortable, not in distress. SKIN: Adequate turgor. HEENT: She has pinkish conjunctivae. Anicteric sclerae. No neck mass. No carotid bruits. No JVD. CHEST: No deformities. LUNGS: Clear breath sounds. HEART: Normal sinus rhythm. No murmur. No gallops. No rubs. ABDOMEN: Globular, soft, nontender. No masses. EXTREMITIES: No edema. No deformities. MEDICATIONS: Medications of May 18, 2018, was reviewed. LABORATORY DATA: Laboratories of May 18, 2018, reviewed. Please note, her serum sodium was noted at 134. However, creatinine noted at 1.16. ASSESSMENT AND PLAN: 1. 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 The patient was noted to have been started on her hydrochlorothiazide. My advice is to discontinue these due to the fact this may cause some hyponatremia. 2. Continue sodium chloride tablet. No indication for any hypertonic saline. 3. Mildly elevated creatinine-consider prerenal azotemia. We will discontinue hydrochlorothiazide. 4. Symptomatic bradycardia-status post pacemaker placement. 5. Check basic metabolic profile tomorrow. Job ID: [id number]
[2018-05-18 12:56] VITALS: BMI 31.4
--- NOTE | 2018-05-18 14:30 | PDOC.PN ---
- Subjective Encounter Start Date: 05/18/18 Encounter Start Time: 14:22 Subjective: feels well. walked w PT fast and got dizzy -: Bp noted to be lower side.O?w no new complaints - Objective Resuscitation Status - Order Detail: 05/11/18 01:55 Resuscitation Status Routine Resuscitation Status: FULL: Full Resuscitation MAR Reviewed: Yes Vital Signs & Weight: Vital Signs (12 hours) Temp Pulse Resp BP BP Pulse Ox 05/18/18 12:00 97.3 F L 75 12 107/67 94 L 05/18/18 08:00 97.8 F 68 12 106/69 95 05/18/18 04:22 98.2 F 69 16 116/72 97 Weight Admit Weight 187 lb Weight 182 lb 12.8 oz Most Recent Monitor Data Heart Rate from ECG 69 NIBP 125/41 NIBP BP-Mean 69 Respiration from ECG 21 SpO2 99 I&O: 05/17/18 05/18/18 05/19/18 06:59 06:59 06:59 Intake Total 950 370 Output Total 1650 2250 Balance -700 -1880 Result Diagrams: 05/13/18 08:20 05/18/18 08:42 Additional Labs: Accuchecks 05/18/18 05/18/18 05/17/18 11:42 05:57 20:04 POC Glucose 100 75 171 H 05/17/18 16:36 POC Glucose 139 H Laboratory Tests 05/15/18 05/16/18 05/17/18 04:02 04:55 04:56 Sodium 125 L 134 L 132 L Creatinine 0.91 0.86 05/18/18 08:42 Sodium 134 L Creatinine 1.16 H Phys Exam - Physical Examination Constitutional: NAD HEENT: PERRLA, moist MMs, sclera anicteric, oral pharynx no lesions Neck: no nodes, no JVD, supple, full ROM Respiratory: no wheezing, no rales, no rhonchi, clear to auscultation bilateral Cardiovascular: RRR, no significant murmur Gastrointestinal: soft, non-tender, no distention, positive bowel sounds Musculoskeletal: no edema, pulses present Neurological: non-focal, normal sensation, moves all 4 limbs Psychiatric: normal affect, A&O x 3 Skin: no rash Dx/Plan (1) Sinus bradycardia Code(s): R00.1 - BRADYCARDIA, UNSPECIFIED Status: Acute Comment: s/p PPM (2) Hypotension Status: Resolved (3) Hyponatremia Code(s): E87.1 - HYPO-OSMOLALITY AND HYPONATREMIA Status: Acute Comment: started on Tolvaptan. ? SIADH. getting better (4) Diastolic HF (heart failure) Code(s): I50.30 - UNSPECIFIED DIASTOLIC (CONGESTIVE) HEART FAILURE Status: Resolved Qualifiers: Heart failure chronicity: acute Qualified Code(s): I50.31 - Acute diastolic (congestive) heart failure (5) Coronary artery disease Code(s): I25.10 - ATHSCL HEART DISEASE OF [place] CORONARY ARTERY W/O ANG PCTRS Status: Chronic Qualifiers: Coronary Disease-Associated Artery/Lesion type: [place] artery (6) Hypertension Code(s): I10 - ESSENTIAL (PRIMARY) HYPERTENSION Status: Chronic Qualifiers: Hypertension type: essential hypertension Qualified Code(s): I10 - Essential (primary) hypertension - Plan PT/OT, DVT proph w/SCDs Relax fluid restriction.parameters for antihypertensives -: rehab when accpeted -: HR controlled post PPM placement -: sodium improved. HCTZ stopped * . Review of Systems - Review of Systems Constitutional: negative: fever, chills, sweats, weakness, malaise, other ENT: negative: Ear Pain, Ear Discharge, Nose Pain, Nose Discharge, Nose Congestion, Mouth Pain, Mouth Swelling, Throat Pain, Throat Swelling, Other Respiratory: negative: Cough, Dry, Shortness of Breath, Hemoptysis, SOB with Excertion, Pleuritic Pain, Sputum, Wheezing Cardiovascular: negative: chest pain, palpitations, orthopnea, paroxysmal nocturnal dyspnea, edema, light headedness, other Gastrointestinal: negative: Nausea, Vomiting, Abdominal Pain, Diarrhea, Constipation, Melena, Hematochezia, Other Genitourinary: negative: Dysuria, Frequency, Incontinence, Hematuria, Retention , Other Musculoskeletal: negative: Neck Pain, Shoulder Pain, Arm Pain, Back Pain, Hand Pain, Leg Pain, Foot Pain, Other Neurological: negative: Weakness, Numbness, Incoordination, Change in Speech, Confusion, Seizures, Other - Medications/Allergies Allergies/Adverse Reactions: Allergies Allergy/AdvReac Type Severity Reaction Status Date / Time metoprolol [From Toprol XL] AdvReac Severe Verified 05/11/18 15:51 Medications: Current Medications Acetaminophen (Tylenol) 650 mg PO Q4H PRN PRN Reason: Headache/Fever/Mild Pain (1-3) Last Admin: 05/16/18 16:52 Dose: 650 mg Aspirin (Ecotrin) 81 mg PO BID [facility] Last Admin: 05/18/18 09:34 Dose: 81 mg Atorvastatin Calcium (Lipitor) 10 mg PO DAILY [facility] Last Admin: 05/18/18 09:34 Dose: 10 mg Cyclobenzaprine HCl (Flexeril) 10 mg PO TIDPRN PRN PRN Reason: Muscle Spasms Dextrose/Water (Dextrose 50%) 25 gm SLOW IVP PRN PRN PRN Reason: Hypoglycemia Diphenhydramine HCl (Benadryl) 25 mg PO Q6H PRN PRN Reason: Itching & Insomnia Last Admin: 05/13/18 02:01 Dose: 25 mg Enoxaparin Sodium (Lovenox) 30 mg SC 0900 [facility] Last Admin: 05/18/18 09:35 Dose: 30 mg Gabapentin (Neurontin) 100 mg PO TID [facility] Last Admin: 05/18/18 09:34 Dose: 100 mg Glucagon (Glucagon) 1 mg IM PRN PRN PRN Reason: Hypoglycemia Hydralazine HCl (Apresoline) 10 mg SLOW IVP Q4H PRN PRN Reason: SBP Greater Than 170 Last Admin: 05/11/18 15:45 Dose: 10 mg Dextrose/Water (D5w) 1,000 mls @ 0 mls/hr IV .Q0M PRN PRN Reason: Hypoglycemia Insulin Human Regular (Humulin R) 0 units SC .MILD SLIDING SCALE PRN PRN Reason: Mild Correctional Scale Lidocaine (Lidoderm 5% Patch) 1 patch TD Q24H PRN PRN Reason: Pain Last Admin: 05/15/18 20:37 Dose: 1 patch Miscellaneous Medication (Lidocaine Patch Removal) 1 each TOP Q24H PRN PRN Reason: REMOVE AFTER 12 HOURS Last Admin: 05/14/18 08:09 Dose: 1 each Olmesartan (Benicar) 20 mg PO BID [facility] Last Admin: 05/18/18 09:33 Dose: 20 mg Senna/Docusate Sodium (Senokot S) 1 tab PO BID [facility] Last Admin: 05/18/18 09:36 Dose: Not Given Sodium Chloride (Flush - Normal Saline) 10 ml IVF Q12HR [facility] Last Admin: 05/18/18 09:49 Dose: 10 ml Sodium Chloride (Flush - Normal Saline) 10 ml IVF PRN PRN PRN Reason: Saline Flush Sodium Chloride (Sodium Chloride) 1 gm PO BID [facility] Last Admin: 05/18/18 09:34 Dose: 1 gm Tramadol HCl (Ultram) 50 mg PO Q4H PRN PRN Reason: Pain 4-6 Last Admin: 05/17/18 10:25 Dose: 50 mg
[2018-05-18] MEDS: traMADol HCl 50 MG TAB PO PRN (21:31)
[2018-05-19 05:18] LABS: Anion Gap 10 mmol/L (10-20); BUN (Urea Nitrogen) 30 mg/dL (9.8-20.1); Calc. Creatinine Clearance 72 mL/min (70-130); Calcium 8.5 mg/dL (7.8-10.44); Carbon Dioxide 26 mmol/L (23-31); Chloride 105 mmol/L (98-107); Estimated GFR-MDRD 70; Glucose 85 mg/dL (83-110); Potassium 4.4 mmol/L (3.5-5.1); Sodium 137 mmol/L (136-145)
[2018-05-19] MEDS: Enoxaparin Sodium 30 MG/0.3 ML SYRINGE SC SCH (08:04)
[2018-05-19] MEDS: Senokot S 8.6-50 MG TAB PO SCH (08:04)
[2018-05-19] MEDS: Aspirin 81 mg Enteric Coated Tablet PO SCH (08:04)
[2018-05-19] MEDS: Gabapentin 100 MG CAP PO SCH ×2 (08:05→15:36)
[2018-05-19] MEDS: Atorvastatin Calcium 10 MG TAB PO SCH (08:05)
[2018-05-19] MEDS: Sodium Chloride 1 GM TAB PO SCH (08:48)
--- NOTE | 2018-05-19 09:56 | PRG ---
DATE OF SERVICE: 05/19/2018 SERVICE: Renal Medicine. SUBJECTIVE: Ms. 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 I think the SIADH may be acute in nature. She has been given tolvaptan. Currently on sodium chloride tablets. Serum sodium is improving with fluid restriction and with sodium chloride. In the interim, she had a pacemaker placed due to a symptomatic bradycardia. No new complaints today. She is ambulating. Awaiting rehab placement. OBJECTIVE: VITAL SIGNS: Blood pressure is noted at 110/70 with a heart rate of 87, respiratory rate 16, temperature 98.2, and pulse ox 95%. GENERAL: Awake, alert, comfortable, not in distress. SKIN: Adequate turgor. HEENT: She has a pinkish conjunctivae. Anicteric sclerae. NECK: No neck mass. No carotid bruits. No JVD. CHEST: No deformities. LUNGS: Clear breath sounds. No wheezing. No crackles. HEART: Normal sinus rhythm. No murmur. No gallops. No rubs. ABDOMEN: Globular, soft, nontender. No masses. EXTREMITIES: No edema. No deformities. MEDICATIONS: Medications of May 19, 2018, was reviewed. LABORATORY DATA: Laboratories of May 19, 2018; sodium 137, potassium 4.4, chloride 105, carbon dioxide 26, BUN 30, creatinine 0.79, glucose 85, calcium 8.5. ASSESSMENT AND PLAN: 1. Hyponatremia - resolved. Continue free water restriction and sodium chloride tablets. In the near future, we could probably hold it off depending what the serum sodium is. 2. Sinus bradycardia - much improved with pacemaker placement. 3. Hypertension, excellent control. Agree with current management. We will be signing off. Please recall if needed. Job ID: [id number]
[2018-05-19 16:10] VITALS: BP 128/88; TEMP 97.7
--- NOTE | 2018-05-20 02:52 | DIS ---
DATE OF ADMISSION: 05/10/2018 DATE OF DISCHARGE: 05/19/2018 CONDITION: At the time of discharge, stable and improved. DISCHARGE DISPOSITION: Rehab at [facility]. DISCHARGE DIAGNOSES: 1. Sinus bradycardia, status post pacemaker placement. 2. Mild acute on chronic diastolic congestive heart failure. 3. Hyponatremia likely SIADH, resolved. 4. Coronary artery disease. 5. Hypertension. DISCHARGE MEDICATIONS: 1. Aspirin 81 mg daily. 2. Olmesartan one tablet daily. 3. Linagliptin one tablet daily. 4. Lipitor 10 mg daily. 5. Lasix 40 mg daily. 6. Insulin sliding scale. 7. Sodium chloride 1 g daily. 8. Tramadol p.r.n. 9. Olmesartan 20 mg b.i.d. 10. Please note that the patient has been taken off hydrochlorothiazide due to hyponatremia. 11. Neurontin 100 mg p.o. t.i.d. IN-HOUSE CONSULTATION: 1. Cardiology, Dr. Alfred and Dr. Sheffield. 2. Nephrology, Dr. Tatum. PROCEDURES DONE IN THE HOSPITAL: 1. CT angio of the thorax upon presentation on 05/10/2018, which shows no pulmonary embolism finding suggesting mild congestive heart failure and colonic diverticulosis. 2. Placement of a permanent pacemaker by Dr. Sheffield on 05/16/2018. 3. Multiple chest x-rays. PRIMARY CARE PHYSICIAN: Simona Estrada MD HISTORY OF PRESENTING ILLNESS: Ms. Lake is a pleasant 82-year-old female with past medical history of hypertension, coronary artery disease and prediabetes, who presented to the emergency room with shortness of breath and lower extremity swelling. She was found to have some pulmonary edema in the ER and was given IV Lasix. A CT angio was done, which is negative for any pulmonary embolism. Her BNP was found to be elevated at 1100. Her D-dimer was also high at 2.53. Sodium was low at 127. She was started on diuresis and was admitted on telemetry floor and Cardiology was consulted. Please see admission history and physical for further details. HOSPITAL COURSE: The patient was seen by Dr. Alfred as her regular virtual recruiter. Medications were adjusted and the patient was diuresed. Her hyponatremia was managed by Nephrology, Dr. Tatum. She received multiple doses of tolvaptan and free water restriction with resolution of hyponatremia. She was found to have an episode of hypotension when on bradycardia and shirin hayward was called while she was in the hospital. She underwent a pacemaker for sinus bradycardia by Dr. Sheffield successfully. The patient was diuresed for euvolemia and is walking in the hallways with the help of physical therapist. She has no new complaints and feels well. Her medications were optimized. New medication prescriptions were provided. She was taken off hydrochlorothiazide. She was evaluated by Rehab and has been accepted and will be discharged. I have seen and examined the patient prior to discharge. PHYSICAL EXAMINATION: VITAL SIGNS: This morning, vital signs, temperature 97.9, pulse of 72, respirations 18, saturating 97% on room air, and blood pressure 123/69. GENERAL: No acute distress, sitting at the side of the bed. Family is at bedside. CHEST: Clear to auscultation bilaterally. HEART: Rate and rhythm are regular. Pacemaker site without any erythema, swelling, or warmth. LABORATORY DATA: Her discharge serum sodium is 137, and rest of the serum chemistries and renal function unremarkable within normal limits. DISCHARGE INSTRUCTIONS: The patient will follow up with primary care physician after she is done with her rehab, as well as with Dr. Tatum. I discussed the dose of her salt tablets with Dr. Tatum and she will continue on 1 g tablet once a day until she sees him in the outpatient setting. She will also follow up with her primary virtual recruiter, Dr. Alfred, on 05/30/2018 at 10:30 a.m. She is scheduled to follow up with outpatient cardiac rehab after the rehab stay at [facility]. All questions were answered. Discharge plan was discussed with the patient and her children at bedside, and they verbalized understanding. TIME SPENT: Total time spent, 35 minutes. Job ID: [id number]
== END 2018-05-19 17:15 | DRG 243 ==
LOC: ERS 18:33 → ERHOLD 23:02 → 2NO 05-11 14:34 → IMCU/EMU 05-15 15:20 → SJJU 05-17 21:16
PROVIDERS: ADMIT Family Medicine; ATTEND Family Medicine
PROC: 0JH606Z Insertion of Pacemaker, Dual Chamber into Chest Subcutaneous Tissue and Fascia, Open Approach (ICD-10-PCS; principal; 2018-05-16)
PROC: 02H63JZ Insertion of Pacemaker Lead into Right Atrium, Percutaneous Approach (ICD-10-PCS; 2018-05-16)
PROC: 02HK3JZ Insertion of Pacemaker Lead into Right Ventricle, Percutaneous Approach (ICD-10-PCS; 2018-05-16)
DX: I11.0 Hypertensive heart disease with heart failure (principal); E22.2 Syndrome of inappropriate secretion of antidiuretic hormone; I50.33 Acute on chronic diastolic (congestive) heart failure; I25.10 Atherosclerotic heart disease of native coronary artery without angina pectoris; R00.1 Bradycardia, unspecified; R73.03 Prediabetes; I95.9 Hypotension, unspecified; E78.5 Hyperlipidemia, unspecified; Z88.8 Allergy status to other drugs, medicaments and biological substances; Z79.82 Long term (current) use of aspirin; Z79.899 Other long term (current) drug therapy
CPT/HCPCS: 33208; 36415; 36416; 71045; 71275; 80048; 80053; 82436; 82533; 82550; 82553; 83735; 83880; 83930; 83935; 84133; 84300; 84443; 84484; 84550; 85025; 85379; 85652; 86038; 86140; 86225; 93005; 93010; 93306; 93798; 96372; 96374; 99152; 99153; C1785; C1898; J0360; J0690; J1580; J1650; J1940; J2250; Q0163; Q9966

== ENCOUNTER 2018-06-25 10:34 | Emergency (ER) | payer MEDICARE, OTHER ==
[2018-06-25] MEDS ORDERED: Lorazepam 2 MG/ML VIAL ONE (10:58)
[2018-06-25] MEDS ORDERED: Pantoprazole 40 MG VIAL ONE (10:58)
--- NOTE | 2018-06-25 11:17 | RAD ---
F2 views chest: 06/25/2018 COMPARISON: 05/17/2018 HISTORY: Chest pain FINDINGS: Stable dual lead transvenous pacing device. Clips in right upper quadrant suggest prior cho lecystectomy. No pneumothorax, pleural fluid, focal consolidation, or alveolar edema. IMPRESSION: No acute findings.
[2018-06-25 11:18] LABS: #Eosinphils 0.1 thou/uL (0.0-0.7); #Lymphocytes 1.3 thou/uL (1.20-3.40); #Monocytes 0.5 thou/uL (0.11-0.59); #Neutrophils 5.3 thou/uL (1.40-6.50); %Basophils 0.3 % (0.0-1.0); %Eosinophils 1.3 % (0.0-10.0); %Lymphocytes 17.5 % (21.0-51.0); %Monocytes 6.6 % (0.0-10.0); %Neutrophils 74.3 % (42.0-75.0); Hemoglobin 12.7 g/dL (12.0-16.0); Mean Corpuscular HGB CONC 31.7 g/dL (32.0-36.0); Mean Corpuscular Hemoglobin 29.2 pg (27.0-31.0); Mean Corpuscular Volume 92.3 fL (78.0-98.0); Mean Platelet Volume 7.9 fL (7.4-10.4); Platelet Count 212 thou/uL (130-400); RBC Distribution Width 13.6 % (11.5-14.5); Red Blood Cell (RBC) Count 4.34 mill/uL (4.20-5.40); White Blood Cell (WBC) Count 7.2 thou/uL (4.8-10.8)
[2018-06-25 11:40] LABS: ALT (SGPT) 22 U/L (8-55); AST (SGOT) 19 U/L (5-34); Albumin 3.9 g/dL (3.4-4.8); Alkaline Phosphatase 65 U/L (40-150); Anion Gap 15 mmol/L (10-20); BUN (Urea Nitrogen) 20 mg/dL (9.8-20.1); Bilirubin, Total 0.8 mg/dL (0.2-1.2); Calc. Creatinine Clearance 0 mL/min (70-130); Calcium 9.3 mg/dL (7.8-10.44); Carbon Dioxide 20 mmol/L (23-31); Chloride 108 mmol/L (98-107); Estimated GFR-MDRD 54; Globulin 2.5 g/dL (2.4-3.5); Glucose 93 mg/dL (83-110); Protein, Total 6.4 g/dL (6.0-8.3); Sodium 139 mmol/L (136-145)
[2018-06-25 12:00] LABS: Bilirubin Negative (Negative); Blood, Urine Negative (Negative); Clarity CLEAR (Clear); Glucose, Urine (Dipstick) Negative (Negative); Leukocyte Moderate (Negative); Nitrite Negative (Negative); Protein, Urine (Dipstick) Negative (Neg-Trace); Specific Gravity, Urine 1.008 (1.002-1.036); pH, Urine 7.5 (5.0-9.0)
[2018-06-25 12:03] LABS: Bacteria/HPF None Seen HPF (None Seen)
[2018-06-25 12:08] LABS: Pathc Cast-AUWi Flag 3.26 (0-2.49)
[2018-06-25 12:18] LABS: Hyaline Casts/LPF 0-3 HYALINE CAST LPF (0-3 Hyaline); Other Casts/LPF None Seen LPF (0-3 Hyaline)
--- NOTE | 2018-07-01 15:29 | EKG ---
Test Reason : SOB Blood Pressure : / mmHG Vent. Rate : 087 BPM Atrial Rate : 087 BPM P-R Int : 160 ms QRS Dur : 084 ms QT Int : 358 ms P-R-T Axes : 011 034 034 degrees QTc Int : 430 ms Normal sinus rhythm Normal ECG Confirmed by COREY JARAMILLO ([id number]), editor producer LASHAY MENDIOLA ([id number]) on 07/01/2018 3:29:08 PM Referred By: Confirmed By:COREY JARAMILLO
== END 2018-06-25 12:32 | disposition home or self-care (01) ==
LOC: ERS 10:34
DX: N39.0 Urinary tract infection, site not specified (principal); E11.9 Type 2 diabetes mellitus without complications; E78.5 Hyperlipidemia, unspecified; I10 Essential (primary) hypertension; Z79.82 Long term (current) use of aspirin; Z79.899 Other long term (current) drug therapy
CPT/HCPCS: 36415; 71046; 80053; 81003; 81015; 84484; 85025; 87086; 93005; 96374; 96375; C9113; J2060